=== PATIENT | female | born 1985 | race Hispanic/Latino ===

== ENCOUNTER 2018-08-20 07:03 | Inpatient (IN) | payer OTHER ==
--- OUTSIDE RECORDS SUMMARY | 2018-08-20 07:05 | XMS REPORT ---
:1985 [facility] Address [address] [place] [address] Care Team Providers Name Role Phone PABLO HEATH Unavailable Unavailable Problems This patient has no known problems. Allergies, Adverse Reactions, Alerts This patient has no known allergies or adverse reactions. Medications This patient has no known medications. Results Test Description Test Time Test Comments Text Results Atomic Results Result Comments U/S, ABDOMINAL, 2018-07-02 Referring: FINAL REPORT PATIENT ID: COMPLETE 16:16:00 Jet Bhat [id number] TECHNIQUE: for Exam:->liver Grayscale ultrasound of the mass, currently abdomen. INDICATION: 33-year-old woman with liver mass. COMPARISON: Abdomen ultrasound 03/20/2018, abdomen MRI five 2018. FINDINGS: MIDLINE VASCULATURE: The visualized inferior vena cava is patent. Portal vein is patent. The maximum visualized aortic diameter is 2.4 cm. LIVER: The liver is normal in size. Smooth liver contour. No significant change in size of the 7.9 cm mildly hyperechoic mass in the posterior right hepatic lobe with some internal vascularity. BILIARY:Gallbladder: No gallstones or sludge. No gallbladder wall thickening, pericholecystic fluid, or distention. Negative sonographic Lewis sign.Common bile duct measures 0.3 cm, within normal limits. No intrahepatic biliary ductal dilatation. PANCREAS: Visualized portions of the pancreas are unremarkable. SPLEEN: No splenomegaly. PERITONEUM: No free fluid. KIDNEYS: Normal in size bilaterally. No hydronephrosis. No sonographically evident solid mass lesion. IMPRESSION:No significant change in size of the mildly hyperechoic mass in the posterior right hepatic lobe, consistent with previously characterized focal nodular hyperplasia. Signed: Angelito Haynes MDReport Verified Date/Time: 07/02/2018 16:16:35 Reading Location: [address] Radiology Reading Room U/S, ABDOMINAL, 2018-03-20 Referring: FINAL REPORT PATIENT ID: COMPLETE 10:51:00 Jet Gayason [id number] TECHNIQUE: for Exam:->right Grayscale ultrasound of the lobe liver lesion abdomen. INDICATION: 32-year-old woman with right liver lesion. COMPARISON: Abdomen MRI 11/28/2017. FINDINGS: MIDLINE VASCULATURE: The visualized inferior vena cava is patent. Portal vein is patent. The maximum visualized aortic diameter is 1.8 cm. LIVER: The liver is normal in size and echogenicity. Smooth liver contour. Given differences in imaging modalities, no significant change in size of the 7.7 cm mildly hyperechoic lesion in the posterior right hepatic lobe without significant internal vascularity. BILIARY:Gallbladder: No gallstones or sludge. No gallbladder wall thickening, pericholecystic fluid, or distention. Negative sonographic Lewis sign.Common bile duct measures 0.5 cm, within normal limits. No intrahepatic biliary ductal dilatation. PANCREAS: Visualized portions of the pancreas are unremarkable. SPLEEN: No splenomegaly. PERITONEUM: No free fluid. KIDNEYS: Normal in size bilaterally. No hydronephrosis. No sonographically evident solid mass lesion. IMPRESSION:No significant change in size of the 7.7 cm lesion in the posterior right hepatic lobe, consistent with previously characterized focal nodular hyperplasia. Signed: Angelito Haynes MDReport Verified Date/Time: 03/20/2018 10:51:28 Reading Location: [address] Radiology Reading Room , ABDOMEN, WITH 2017-11-28 Referring: FINAL REPORT PATIENT ID: 13:32:00 Jet Bradshaw Liver [id number] protocol with EOVIST INDICATION:32-year-old female with mild abdominal pain and mass of the right hepatic lobe. COMPARISON: Outside facility MR exams November 28, 2016 TECHNIQUE: MR of the Abdomen WITHOUT and WITH intravenous contrast (Eovist). FINDINGS:In the posterior right hepatic lobe there is a circumscribed mass with a central scar. The mass homogeneously and brightly enhances on the hepatic arterial dominant phase, becomes iso-enhancing on portal venous phase, and takes up contrast on the hepatobiliary phase. The central scar is mildly hyperintense on T2-weighted imaging and enhances on the hepatic venous phase and does not take up contrast on the hepatobiliary phase. These signal characteristics and enhancement patterns are classic for fibronodular hyperplasia. The mass measures 7.1 x 5.2 x 5.9 cm and is unchanged in size, by my own measurement, compared to November 2016. It slightly distends the liver capsule. Overall the liver is normal in signal, size, and contour. Gallbladder is unremarkable. There is no biliary ductal dilatation. Pancreas spleen, adrenal glands, kidneys, and visualized bowel loops are unremarkable. Lower thorax unremarkable. No suspicious marrow signal abnormality. IMPRESSION:7-cm focal nodular hyperplasia (benign lesion) in the posterior right hepatic lobe. Signed: Mookie Osborn MDReport Verified Date/Time: 11/28/2017 13:32:45 Reading Location: [facility] Diagnostic Imaging Reading Room - [place] [id number] -CREATININE 2017-11-28 10:03:00 Test Item Value Reference Range Comments POC-CREATININE (BEAKER) (test 0.6 mg/dL 0.6-1.3 TESTED AT [facility] 2457 [id number]) [facility] [id number] POC-EGFR (AZUCENAAKER) (test 115 mL/min/1.73M2 uipy=[id number])
--- OUTSIDE RECORDS SUMMARY | 2018-08-20 07:05 | XMS REPORT | Clinical Summary ---
:1985 Author Organization [facility] Address [address] [place] [address] Care Team Providers Name Role Phone Jet Bradshaw Primary Care Provider Allergies Active Allergy Reactions Severity Noted Date Comments Zolpidem 01/01/2017 Medications Medication Sig Dispensed Refills Start Date End Date Status PNV no.95/ferrous Take by mouth 0 Active fum/folic ac ( daily. ORAL)Indications: Liver lesion, right lobe Hospital, Clinic, or Ordered Dose Route Frequency Start Date End Date Status Other Facility Administered Medication gadoxetate IV 165 mmol IArt IMG once as 11/28/2017 11/28/2017 Ended solution 165 mmol needed Active Problems Problem Noted Date 14 weeks gestation of 02/21/2018 Liver lesion, right lobe 01/01/2017 Last Assessment & Plan: Evaluation of uterine fibroids in November 2016 revealed a 7 cm right lobe liver mass which is most consistent with an FNH. Risk factors for liver masses include long history of OCPs which she stopped 2 week s ago. There is radiographic or biochemical evidence of advanced liver disease. She had a CT scan without IV contrast in 2013 which did not report this liver lesion. We will obtain CT report and imaging for review. November 2016 MRI has been reviewed in clinic and lesion is most consistent with an FNH. Updated labs today evaluating liver function along with tumor markers. She will have these done locally due to insurance. We will review all imaging at radiology conference. If mass is consistent with an FNH, she can restart OCPs and we will get a repeat MRI in 6 months to follow. Encounters Date Type Specialty Care Team Description 08/19/2018 Telephone Transplant Lidia Lara Follow-up Hepatology PHOEBE Navarrete 07/19/2018 Abstract Hepatology Ale Osullivan, TARAS 07/19/2018 Abstract Hepatology Ale Osullivan, TARAS 07/19/2018 Abstract Hepatology Ale Osullivan, TARAS 07/19/2018 Abstract Hepatology Ale Osullivan, TARAS 07/19/2018 Abstract Hepatology Ale Osullivan, TARAS 07/19/2018 Abstract Hepatology Ale Osullivan, TARAS 07/15/2018 Documentation Transplant Lidia Lara Hepatology PHOEBE Navarrete 07/02/2018 Hospital Encounter Radiology Mateo Chavez Liver lesion, right MD Amish lobe 07/02/2018 Outside Orders Mateo Chavez MD 03/20/2018 Hospital Encounter Radiology Mateo Chavez Liver lesion, right lobe ; MD Amish 14 weeks gestation of 03/20/2018 Telephone Hepatology Leana Jordan Results Sallie, FUAD 03/20/2018 Outside Orders Mateo Chavez MD 02/21/2018 Telephone Transplant Leana Jordan Results Hepatology Sallie, FUAD 02/18/2018 Abstract Hepatology Carmen France RN 01/24/2018 Office Visit Transplant Leana Jordan Liver lesion, right Hepatology FUAD Rizo lobe (Primary Dx) Mateo Chavez MD 01/17/2018 Telephone Transplant Leana Jordan Follow-up Hepatology Sallie, FUAD 11/30/2017 Telephone Transplant Leana Jordan Results Hepatology Sallie, FUAD 11/28/2017 Hospital Encounter Radiology Mateo Chavez Liver lesion, right MD Amish lobe 09/07/2017 Documentation Hepatology Leana Jordan Liver lesion, right Sallie, FUAD lobe (Primary Dx) 09/04/2017 Abstract Hepatology Carmen France, RN 09/04/2017 Documentation Hepatology Carmen France, RN after 08/19/2017 Family History Medical History Relation Name Comments Diabetes Mother Relation Name Status Comments Mother Social History Tobacco Use Types Packs/Day Years Used Date Never Smoker Smokeless Tobacco: Never Used Alcohol Use Drinks/Week oz/Week Comments Yes Social - Rum Sex Assigned at Date Recorded Not on file Job Start Date Occupation Industry Not on file Not on file Not on file Travel History Travel Start Travel End No recent travel history available. Last Filed Vital Signs Vital Sign Reading Time Taken Blood Pressure 112/79 01/24/2018 10:41 AM CDT Pulse 71 01/24/2018 10:41 AM CDT Temperature 36.9 C (98.4 F) 01/24/2018 10:41 AM CDT Respiratory Rate 18 01/24/2018 10:41 AM CDT Oxygen Saturation 98% 01/24/2018 10:41 AM CDT Inhaled Oxygen Concentration - - Weight 70 kg (154 lb 4.8 oz) 01/24/2018 10:41 AM CDT Height 154.9 cm (5' 1") 01/24/2018 10:41 AM CDT Body Mass Index 29.15 01/24/2018 10:41 AM CDT Plan of Treatment Health Maintenance Due Date Last Done Comments INFLUENZA VACCINE 04/29/2018 Procedures Procedure Name Priority Date/Time Associated Diagnosis Comments US ABDOMEN COMPLETE Routine 07/02/2018 1:45 PM Liver lesion, right Results for this BUSINESS ANALYSIS CONSULTANT lobe procedure are in the results section. US ABDOMEN COMPLETE Routine 03/20/2018 9:36 AM Liver lesion, right Results for this CDT lobe procedure are in 14 weeks gestation the results of section. MR ABDOMEN Routine 11/28/2017 11:00 AM Liver lesion, right Results for this WITH/WITHOUT IV CDT lobe procedure are in CONTRAST the results section. POCT-CREATININE Routine 11/28/2017 9:59 AM Results for this CDT procedure are in the results section. after 08/19/2017 Results US abdomen complete (07/02/2018 1:45 PM BUSINESS ANALYSIS CONSULTANT)Only the most recent of2 resultswithin the time period is included. Narrative Performed At FINAL REPORT [email or web address] TECHNIQUE: Grayscale ultrasound of the abdomen. INDICATION: 33-year-old woman with liver mass. COMPARISON: Abdomen ultrasound 03/20/2018, abdomen MRI five 2017. FINDINGS: MIDLINE VASCULATURE: The visualized inferior vena cava is patent. Portal vein is patent. The maximum visualized aortic diameter is 2.4 cm. LIVER: The liver is normal in size. Smooth liver contour. No significant change in size of the 7.9 cm mildly hyperechoic mass in the posterior right hepatic lobe with some internal vascularity. BILIARY: Gallbladder: No gallstones or sludge. No gallbladder wall thickening, pericholecystic fluid, or distention. Negative sonographic Lewis sign. Common bile duct measures 0.3 cm, within normal limits. No intrahepatic biliary ductal dilatation. PANCREAS: Visualized portions of the pancreas are unremarkable. SPLEEN: No splenomegaly. PERITONEUM: No free fluid. KIDNEYS: Normal in size bilaterally. No hydronephrosis. No sonographically evident solid mass lesion. IMPRESSION: No significant change in size of the mildly hyperechoic mass in the posterior right hepatic lobe, consistent with previously characterized focal nodular hyperplasia. Signed: Angelito Haynes MD Report Verified Date/Time:07/02/2018 16:16:35 Reading Location: [address] Radiology Reading Room Procedure Note Interface, External Ris In - 07/02/2018 4:18 PM BUSINESS ANALYSIS CONSULTANT FINAL REPORT TECHNIQUE: Grayscale ultrasound of the abdomen. INDICATION: 33-year-old woman with liver mass. COMPARISON: Abdomen ultrasound 03/20/2018, abdomen MRI five 2017. FINDINGS: MIDLINE VASCULATURE: The visualized inferior vena cava is patent. Portal vein is patent. The maximum visualized aortic diameter is 2.4 cm. LIVER: The liver is normal in size. Smooth liver contour. No significant change in size of the 7.9 cm mildly hyperechoic mass in the posterior right hepatic lobe with some internal vascularity. BILIARY: Gallbladder: No gallstones or sludge. No gallbladder wall thickening, pericholecystic fluid, or distention. Negative sonographic Lewis sign. Common bile duct measures 0.3 cm, within normal limits. No intrahepatic biliary ductal dilatation. PANCREAS: Visualized portions of the pancreas are unremarkable. SPLEEN: No splenomegaly. PERITONEUM: No free fluid. KIDNEYS: Normal in size bilaterally. No hydronephrosis. No sonographically evident solid mass lesion. IMPRESSION: No significant change in size of the mildly hyperechoic mass in the posterior right hepatic lobe, consistent with previously characterized focal nodular hyperplasia. Signed: Angelito Haynes MD Report Verified Date/Time: 07/02/2018 16:16:35 Reading Location: [address] Radiology Reading Room Performing Organization Address City/State/Zipcode Phone Number RIS MR abdomen with/without IV contrast (11/28/2017 11:00 AM CDT) Narrative Performed At FINAL REPORT [facility] INDICATION: 32-year-old female with mild abdominal pain and mass of the right hepatic lobe. COMPARISON: Outside facility MR exams November 28, 2016 TECHNIQUE: MR of the Abdomen WITHOUT and WITH intravenous contrast (Eovist). FINDINGS: In the posterior right hepatic lobe there is [...] thorax unremarkable. No suspicious marrow signal abnormality. IMPRESSION: 7-cm focal nodular hyperplasia (benign lesion) in the posterior right hepatic lobe. Signed: Mookie Osborn MD Report Verified Date/Time:11/28/2017 13:32:45 Reading Location: [facility] Diagnostic Imaging Reading Room - [place] [address] Procedure Note Interface, External Ris In - 11/28/2017 1:34 PM CDT FINAL REPORT INDICATION: 32-year-old female with mild abdominal pain and mass of the right hepatic lobe. COMPARISON: Outside facility MR exams November 28, 2016 TECHNIQUE: MR of the Abdomen WITHOUT and WITH intravenous contrast (Eovist). FINDINGS: In the posterior right hepatic lobe there is [...] thorax unremarkable. No suspicious marrow signal abnormality. IMPRESSION: 7-cm focal nodular hyperplasia (benign lesion) in the posterior right hepatic lobe. Signed: Mookie Osborn MD Report Verified Date/Time: 11/28/2017 13:32:45 Reading Location: [facility] Diagnostic Imaging Reading Room - [place] [id number] Performing Organization Address City/State/Zipcode Phone Number [email or web address] POC-Creatinine (11/28/2017 9:59 AM CDT) POC-Creatinine 0.6Comment: TESTED AT 0.6 - 1.3 mg/dL [facility] [address] [facility] [address] POC-EGFR 115 mL/min/1.73M2 [facility] Specimen Blood Narrative Performed At Performing Organization Address City/State/Zipcode Phone Number [facility] [address] [place] [address] [phone] CENTER after 08/19/2017 Insurance Payer Benefit Plan / Group Subscriber ID Type Phone Address [facility] xxxxxxxxxxx PPO (Home) [place] [address]
--- OUTSIDE RECORDS SUMMARY | 2018-08-20 07:05 | XMS REPORT | Clinical Summary ---
:1985 [facility] Address [address] [place] [id number] Care Team Providers Name Role Phone Jet Bradshaw MD Primary Care Provider Allergies Active Allergy Reactions Severity Noted Date Comments Zolpidem High 12/28/2016 Medications No known medications Active Problems Problem Noted Date Liver mass 12/28/2016 Oral contraceptive use 12/28/2016 Family History Medical History Relation Name Comments Diabetes Maternal Grandmother Diabetes Mother Rheum arthritis Mother Relation Name Status Comments Maternal Grandmother Mother Social History Tobacco Use Types Packs/Day Years Used Date Never Smoker Smokeless Tobacco: Never Used Alcohol Use Drinks/Week oz/Week Comments Yes Sex Assigned at Date Recorded Not on file Job Start Date Occupation Industry Not on file Not on file Not on file Travel History Travel Start Travel End No recent travel history available. Last Filed Vital Signs Not on file Plan of Treatment Health Maintenance Due Date Last Done Comments CERVICAL CANCER SCREENING 2005 INFLUENZA VACCINE 02/27/2018 Results Not on fileafter 08/19/2017 Insurance Payer Benefit Plan / Group Subscriber ID Type Phone Address [employer]CIAL xxxxxxxxxxx Commercial (Home) [place] [address] Advance Directives Patient has advance care planning documents on file. For more information, please contact:[facility] [place] [address]
[2018-08-20] MEDS ORDERED: BUTORPHANOL 1 MG/ML INJ IV PRN (08:03)
[2018-08-20] MEDS ORDERED: Ringers Lactate 1,000 ML IV PRN (08:03)
[2018-08-20 08:14] VITALS: BMI 35.3
[2018-08-20 08:27] LABS: RPR Titer ND
[2018-08-20] MEDS ORDERED: METHYLERGONOVINE 0.2MG/ML AMP IM ONE (08:44)
[2018-08-20] MEDS ORDERED: CARBOPROST TROME 250 MCG/ML IM ONE (08:44)
[2018-08-20] MEDS ORDERED: OXYTOCIN/LR 20 UNIT/1,000 ML BAG IV SCH (09:00)
[2018-08-20] MEDS ORDERED: Ringers Lactate 1,000 ML IV SCH (09:00)
[2018-08-20 09:06] LABS: Absolute Lymphocytes (CBC) 2.2 K/uL (0.7-4.9); Absolute Monocytes 0.7 K/uL (0.1-1.3); Absolute Neutrophil 7.7 K/uL (1.8-8.0); Basophils % 0.3 % (0-1.3); Eosinophils % 0.8 % (0-4.4); Lymphocytes % 20.2 % (15.3-44.8); MPV 10.1 fL (7.6-11.3); Monocytes % 6.6 % (3.3-12.3); RBC Red Blood Cell Count 4.49 M/uL (3.86-4.86)
[2018-08-20] MEDS ORDERED: FENTANYL CITR 100 MCG/2 ML ONE (09:24)
[2018-08-20] MEDS ORDERED: ROPIVACAINE HCL 100 ML IV ONE (09:25)
[2018-08-20] MEDS ORDERED: ROPIVACAINE HCL 20 ML ONE (09:25)
[2018-08-20] MEDS ORDERED: FAMOTIDINE 20 MG/2 ML VIAL IV ONE ×2 (10:04→10:45)
--- NOTE | 2018-08-20 10:13 | P.OBGYNHP ---
Certification for Inpatient Patient admitted to: Inpatient With expected LOS: >2 Midnights Patient will require the following post-hospital care: None Practitioner: I am a practitioner with admitting privileges, knowledge of patient current condition, hospital course, and medical plan of care. Services: Services provided to patient in accordance with Admission requirements found in Title 42 Section 412.3 of the Code of Federal Regulations Patient History Date of Service: 08/20/18 Reason for admission: LABOR History of Present Illness: Patient is a 33-year-old 1 para 0 who presents to Labor and delivery at 39 weeks gestation in labor. Patient had spontaneous rupture of membranes at 4: 00 a.m. this morning and then presented to labor and delivery at 7:00 a.m.. She states she has been having contractions off and on throughout the night. She was seen in the office yesterday was found to be 2-3 cm dilated 60% effaced and and-2 station. Today she presents 4 cm dilated 90% effaced,-1 station nitrazine positive with clear fluid noted in the vaginal vault. The patient has obtained care with mt beginning at 9 weeks gestation. Her care has been complicated by fibroid uterus. She also has a mass in her liver that is being followed by her GI physician. She has seen [facility] for ultrasounds. [facility] did not recommend any new interventions and stated she could go to term. She had noninvasive testing done which revealed low risk male infant. Her last ultrasound was done here presents for on July 25. was in cephalic presentation. Amniotic fluid index was 8.6 cm. Estimated weight was 5 lb 15 oz. He 4.4 cm fibroid was noted within the anterior lower uterine segment. Placenta is noted to be anterior. 1 hr glucose screen was normal. She is rubella immune. Varicella immune. Rh positive. She received her Tdap vaccine in the office on July 25. She has been compliant with all visits. Her has been supportive throughout the . Allergies No Known Allergies Allergy (Unverified 08/20/18 08:01) - Past Medical/Surgical History Has patient received pneumonia vaccine in the past: No Diabetic: No -: Hx. of fibroids -: Liver mass -: Removal of a Lypoma on back - Family History Family History: Reviewed- Non-Contributory - Social History Smoking Status: Never smoker Alcohol use: No CD- Drugs: No Caffeine use: Yes Place of Residence: Home Review of Systems 10-point ROS is otherwise unremarkable Physical Examination - Vital Signs Temperature: 98.6 F Blood Pressure: 136/86 Pulse: 79 Respirations: 20 - General General: Alert, Oriented x3, Moderate distress HEENT: Atraumatic Neck: Supple Respiratory: Normal air movement Cardiovascular: No edema, Normal pulses Breasts: Normal configuration, Normal contours, Symmetrical Gastrointestinal: Other (Gravid) Musculoskeletal: No clubbing, No swelling Integumentary: No rashes, No breakdown Neurological: Normal gait, Normal speech - Female Pelvic External genitalia: Normal, No lesions, No masses Vagina: Normal, [place], Moist Cervix: Dilation (6 cm), Effacement (90% effaced), station (-1 station vertex presentation) Uterus: Gravid - Obstetrics heart rate tracing: Category 2 Contractions: Frequency (Every 3-5 min) Amniotic membrane: SROM (4:00 a.m.) Laboratory Data (last 24 hrs) 08/20/18 07:50: WBC 10.6, Hgb 12.1, Hct 36.0, Plt Count 246 Assessment and Plan - Plan Patient is a 33-year-old G 1 P 0 at 39 weeks gestation who presents in active labor. Patient has had spontaneous rupture of membranes. She is GBS negative. Her care is complicated by fibroid uterus. She is has received her epidural. Her pain is well managed. Pitocin will be started as needed for labor augmentation. Continuous maternal monitoring be performed. Anticipate vaginal . Discharge Plan: Home Plan to discharge in: 48 Hours - Advance Directives Does patient have a Living Will: No Does patient have a Durable POA for Healthcare: No
[2018-08-20] MEDS ORDERED: LIDOCAINE 2% INJ, 20 mL 20 ML ONE (13:37)
[2018-08-20] MEDS ORDERED: IBUPROFEN 200 MG TAB PO PRN (13:56)
[2018-08-20] MEDS ORDERED: ONDANSETRON 4 MG (ODT) TAB PO PRN (13:56)
[2018-08-20] MEDS ORDERED: Oxycodone HCl/Acetaminophen 1 TAB TAB PO PRN (13:56)
[2018-08-20] MEDS ORDERED: METHYLERGONOVINE 0.2 MG TAB PO PRN (13:56)
[2018-08-20] MEDS ORDERED: ACETAMINOPHEN 500 MG TAB PO PRN (13:56)
[2018-08-20] MEDS ORDERED: BISACODYL 10 MG RECTAL SUPP RECT PRN (13:56)
[2018-08-20] MEDS ORDERED: DOCUSATE NA/SENNA CONC 1 TAB PO PRN (13:56)
--- NOTE | 2018-08-20 14:00 | P.OP ---
Date of Service: 08/20/18 Findings and Operative Technique Patient delivered a viable male in cephalic presentation on 08/20/18 at 13:33 via vacuum assisted vaginal delivery due to bradycardia over a midline episiotomy. Once was delivered nose and mouth were suctioned with a suction bulb and cord was clamped and cut and was handed off to nursery nurse for evaulation. Attention was then turned to the placenta. Cord blood was obtained. Placenta was delivered with gentle traction and was noted to be intact. Attention was then turned to the episiotomy which was noted to be a second degree laceration and was repaired with a 2.0 vicryl in a usual fashion. Fundus was palpated and found to be firm. EBL was 300 cc. APGARS were assigned 9/9. Weight was found to be 6 lbs 12 ounces. There was a true knot in the umbilical cord. First stage of labor was 7 hours and 45 minutes. Second stage of labor was 1 hour and 12 minutes.
[2018-08-21 04:56] LABS: Absolute Lymphocytes (CBC) 2.3 K/uL (0.7-4.9); Absolute Neutrophil 11.4 K/uL (1.8-8.0); Basophils % 0.2 % (0-1.3); Eosinophils % 0.7 % (0-4.4); Hematocrit 31.8 % (36.0-45.0); Lymphocytes % 15.7 % (15.3-44.8); MPV 9.6 fL (7.6-11.3); RBC Red Blood Cell Count 3.93 M/uL (3.86-4.86)
[2018-08-21] MEDS ORDERED: Ringers Lactate 1,000 ML IV ONE (06:30)
[2018-08-21 17:53] VITALS: BP 134/82; TEMP 98.3
[2018-08-21 20:33] LABS: RPR (Rapid Plasma Reagin) NON-REACT (NON-REACT)
--- NOTE | 2018-08-21 22:06 | P.DS ---
Admission Date: 08/20/18 Discharge Date: 08/21/18 Disposition: ROUTINE DISCHARGE Discharge Condition: GOOD Reason for Admission: LABOR Brief History of Present Illness: Patient is a 33-year-old 1 para 0 who presents to Labor and delivery at 39 weeks gestation in labor. Patient had spontaneous rupture of membranes at 4: 00 a.m. this morning and then presented to labor and delivery at 7:00 a.m.. She states she has been having contractions off and on throughout the night. She was seen in the office yesterday was found to be 2-3 cm dilated 60% effaced and and-2 station. Today she presents 4 cm dilated 90% effaced,-1 station nitrazine positive with clear fluid noted in the vaginal vault. The patient has obtained care with al beginning at 9 weeks gestation. Her care has been complicated by fibroid uterus. She also has a mass in her liver that is being followed by her GI physician. She has [facility] for [facility]. [facility] did not recommend any new interventions and stated she could go to term. She had noninvasive testing done which revealed low risk male . Her last ultrasound was done here presents for on July 25. was in cephalic presentation. Amniotic fluid index was 8.6 cm. Estimated weight was 5 lb 15 oz. He 4.4 cm fibroid was noted within the anterior lower uterine segment. Placenta is noted to be anterior. 1 hr glucose screen was normal. She is rubella immune. Varicella immune. Rh positive. She received her Tdap vaccine in the office on July 25. She has been compliant with all visits. Her has been supportive throughout the . Hospital Course: Patient did well following delivery of the . She has been bonding well with the baby. She has been breast feeding. She is voiding. She is tolerating a regular diet. She is ambulating well. Her pain is well managed. Vital Signs/Physical Exam: Temp Pulse Resp BP Pulse Ox 98.3 F 78 18 134/82 99 08/21/18 17:00 08/21/18 17:00 08/21/18 17:08/21/18 17:00 08/20/18 08:01 General: Alert, In no apparent distress HEENT: Atraumatic Neck: Supple Respiratory: Normal air movement Cardiovascular: No edema, Normal pulses Gastrointestinal: Soft and benign (fundus firm palpable beneath umbilicus ) Musculoskeletal: No clubbing, No swelling Laboratory Data at Discharge: WBC 14.9 K/uL (4.3-10.9) H D 08/21/18 04:41 Hgb 10.5 g/dL (12.0-15.0) L 08/21/18 04:41 Hct 31.8 % (36.0-45.0) L 08/21/18 04:41 Plt Count 238 K/uL (152-406) 08/21/18 04:41 Home Medications: Codeine/APAP [Tylenol W/Codeine #3 tab] 1 tab PO Q6HP PRN #24 tab 08/21/18 Ibuprofen [Ibu] 600 mg PO TIDP PRN #90 tablet 08/21/18 New Medications: Codeine/APAP [Tylenol W/Codeine #3 tab] 1 tab PO Q6HP PRN #24 tab PRN Reason: Pain Ibuprofen [Ibu] 600 mg PO TIDP PRN #90 tablet PRN Reason: Pain Diet: Regular Activity: No lifting more than 10 lbs
[2018-08-23 05:21] LABS: HBsAG Nonreactive (Nonreactive)
== END 2018-08-21 19:00 | disposition home or self-care (01) | DRG 998 ==
LOC: L&D 07:03 → 2ND-WC 07:51
PROVIDERS: ADMIT Student in an Organized Health Care Education/Training Program; ATTEND Student in an Organized Health Care Education/Training Program
PROC: 10D07Z6 Extraction of Products of Conception, Vacuum, Via Natural or Artificial Opening (ICD-10-PCS; principal; 2018-08-20)
PROC: 0W8NXZZ Division of Female Perineum, External Approach (ICD-10-PCS; 2018-08-20)
DX: O76 Abnormality in fetal heart rate and rhythm complicating labor and delivery (principal); O34.13 Maternal care for benign tumor of corpus uteri, third trimester; D25.9 Leiomyoma of uterus, unspecified; O69.2XX0 Labor and delivery complicated by other cord entanglement, with compression, not applicable or unspecified; O66.5 Attempted application of vacuum extractor and forceps; Z3A.39 39 weeks gestation of pregnancy; O75.89 Other specified complications of labor and delivery; R16.0 Hepatomegaly, not elsewhere classified
CPT/HCPCS: 36415; 85025; 86592; 86850; 86900; 86901; 87340; J0595; J2210; J2590; J2795; J3010

== ENCOUNTER 2023-04-19 05:28 | Emergency (ER) | payer BC ==
--- OUTSIDE RECORDS SUMMARY | 2023-04-19 05:32 | XMS REPORT | Continuity of Care Document ---
:[address] [facility] [place], [place] t Address [address] [place] [address] Care Team Providers Name Role Phone JET BRADSHAW Primary Care Physician UnavailDOMINGO Garcia Attending Clinician Unavailable PABLO HEATH Attending Clinician Unavailable Payers Payer Name Policy Type Policy Number Effective Date Expiration Date S alvarado [employer]BS PPO POS EPO [id number] 2020 CHOICE 00:00:00 Problems Condition Condition Condition Status Onset Resolution Last Treating Co mments Source Name Details Category Date Date Treatment Clinician Date 14 weeks 14 weeks Disease [facility]26 [facility]: Medical [facility] Liver Liver Disease Active Last [facility] lesion, lesion, 6-05 [facility] right lobe right lobe 00:00: t & Plan: Medical 00 [facility] g of this note might be different from the original. 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 Risk factors for liver masses include long history of OCPs which she stopped 2 weeks ago. There is radiograp hic or biochemic al evidence of advanced liver disease. She had a CT scan without IV contrast in 2013 which did not report this liver lesion. We will obtain CT report and imaging for review. November 2016 MRI has been reviewed in clinic and lesion is most consisten t with an FNH. Updated labs today evaluatin g liver function along with tumor markers. She will have these done locally due to insurance . [facility] If mass is consisten t with an FNH, she can restart OCPs and we will get a repeat MRI in 6 months to follow. Allergies, Adverse Reactions, Alerts Allergy Allergy Status Severity Reaction(s) Onset Inactive Treating Comm ents Source Name Type Date Date Clinician Zolpidearam Propensi Active [facility] 01-01 [facility] adverse 00:00: Medical reaction 00 Center s ZOLPIDEM Allergy Active [facility] 01-01 00:00: 00 Family History Family Member Diagnosis Comments Start Date Stop Date Source Natural mother Diabetes [facility] Social History Social Habit Start Date Stop Date Quantity Comments Source Alcohol intake 2021-10-06 2021-10-06 [facility] (finding) Tobacco use and 2017-01-01 2017-01-[address] [facility] exposure 00:00:00 00:00:00 non-user [facility] Center Alcohol Comment 2017-01-01 2017-01-01 Social - Rum [facility] 00:00:00 00:00:00 [facility] Center Sex Ass[birth year] At [birth year] [facility] Hermila kes 00:00:00 00:00:00 Medical Center Smoking Status Start Date Stop Date Source Never smoked tobacco [facility] Medications Ordered Filled Start Stop Current Ordering Indication Dosage Frequency Signature Comments Components Source Medication Medication Date Date Medication? Clinician (SIG) Name Name PNV Yes Liver QD Take by [facility]jian 3-10 lesion, mouth Luke s us 14:05: right lobe daily. Medic al fum/folic 41 Center ac ( ORAL) Procedures This patient has no known procedures. Plan of Care Planned Activity Planned Date Details Comments Source Future Scheduled 2030-04-08 DTAP/TDAP/TD VACCINES ([address] [facility] Test 00:00:00 - Td or Tdap) [code = Medica Center DTAP/TDAP/TD VACCINES (2 - Td or Tdap)] Future Scheduled 2023-03-30 Influenza Vaccine (#1) [facility] 00:00:00 [code = Influenza Vaccine [facility] (#1)] Future Scheduled 2022-10-[address] [facility] Test 00:00:00 Counseling and Screening Med ical Center (12+) [code = Tobacco Cessation Counseling and Screening (12+)] Future Scheduled 2022-07-[address] [facility] Test 00:00:00 (12+) [code = DEPRESSION Med ical Center SCREENING (12+)] Future Scheduled 2005 Screening for malignant [facility] Test 00:00:00 neoplasm of cervix Medical C enter (procedure) [code = 474451417] Future Scheduled 2002 HEPATITIS C SCREENING [facility] Test 00:00:00 [code = HEPATITIS C Medical Center SCREENING] Future Scheduled 1999 Human immunodeficiency [facility] Test 00:00:00 virus screening Medical Cent er (procedure) [code = 186700865] Future Scheduled 1984 COVID-19 VACCINE (#1) [facility] Test 00:00:00 [code = COVID-19 VACCINE Med ical Center (#1)] Encounters Start End Encounter Admission Attending Care Care Encounter Source Date/Time Date/Time Type Type Clinicians Facility Department ID 2021-10-06 2021-10-06 Outpatient LYN QUAN [facility] [id number] [facility] 13:57:20 13:57:20 DOMINGO Results Test Description Test Time Test Comments Results Result Comments Source HEPATIC FUNCTION PANEL 2021-10-06 15:34:00 Test Item Value Reference Range Interpretation Comme nts TOTAL PROTEIN (BEAKER) (test code = 770) 7.6 gm/dL 6.0-8.3 ALBUMIN (BEAKER) (test code = 1145) 4.4 g/dL 3.5-5.0 BILIRUBIN TOTAL (BEAKER) (test code = 377) 0.5 mg/dL 0.2-1.2 BILIRUBIN DIRECT (BEAKER) (test code = 706) 0.2 mg/dL 0.1-0.5 ALKALINE PHOSPHATASE (BEAKER) (test code = 346) 73 U/L 40-150 AST (SGOT) (BEAKER) (test code = 353) 17 U/L 5-34 ALT (SGPT) (BEAKER) (test code = 347) 19 U/L 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 Jet Bhat for Exam:->liver mass, currently FINAL REPORT TECHNIQUE: Grayscale ultrasound of the abdomen. INDICATION: 33-year-old woman with liver mass. COMPARISON: Abdomen ultrasound 03/20/2018, abdomen MRI 2017. FINDINGS: MIDLINE VASCULATURE: The visualized inferior vena cava is patent. Portal vein is patent. The maximum visualized aortic diameter is 2.4 cm. LIVER: The liver is normal in size. Smooth liver contour. Nosignificant change in size of the 7.9 cm mildly hyperechoic mass in the posterior right hepatic lobewith some internal vascularity. BILIARY:Gallbladder: No gallstones or [...] MDReport Verified Date/Time: 07/02/2018 16:16:35 Reading Location: [address] Radiology Reading Room U/S, ABDOMINAL, [id number] 10:51:00Referring: Dr. Jet Bhat for Exam:->right lobe liver lesion FINAL REPORT TECHNIQUE: Grayscale ultrasound of the abdomen. INDICATION: 32-year-old woman with right liver lesion. COMPARISON: Abdomen MRI 11/28/2017. FINDINGS: MIDLINE VASCULATURE:The visualized inferior vena cava is patent. Portal [...] Normal in size bilaterally. No hydronephrosis. No son ographically evident solid mass lesion. IMPRESSION:No significant change in size of the 7.7 cm lesion in the posterior right hepatic lobe, consistent with previously characterized focal nodular hyperplasia. Signed: Angelito Haynes MDReport Verified Date/Time: 03/20/2018 10:51:28 Reading Location: [address] Radiology Reading Room MR, ABDOMEN, [id number] 13:32:00Referring: Dr. Jet Bradshaw Liver protocol with EOVISTFINAL REPORT INDICATION:32-year-old female with mild abdominal pain and mass ofthe right hepatic lobe. COMPARISON: Outside facility MR exams November 28, 2016 TECHNIQUE: MR of the Abdomen WITHOUT and WITH intravenous contrast (Eovist). FINDINGS:In the posterior right hepatic lobe thereis a circumscribed mass with a central scar. The mass homogeneously and brightly enhances on the hepatic arterial dominant phase, becomes iso-enhancing on portal venous phase, and takes up contrast on t he hepatobiliary phase. The central scar is mildly [...] MDReport Verified Date/Time: 11/28/2017 13:32:45 Reading Location: [facility] Diagnostic Imaging Reading Room - [place] [id number] 10:03:00 Test Item Value Reference Range Interpretation Comments POC-CREATININE 0.6 mg/dL 0.6-1.3 TESTED AT [facility] ([facility]) (test [address] [facility] code = 1859) [facility] 7703 0 POC-EGFR 115 mL/min/1.73M2 ([facility]) (test code = 1860)
[2023-04-19] MEDS ORDERED: DIAZEPAM 5 MG TABLET ONE (06:20)
[2023-04-19] MEDS ORDERED: ONDANSETRON 4 MG/2 ML VIAL ONE (06:21)
[2023-04-19] MEDS ORDERED: NA CHLORIDE 0.9% 1,000 ML ONE (06:21)
[2023-04-19] MEDS ORDERED: MORPHINE 4 MG/ML SYR ONE (06:21)
[2023-04-19] MEDS ORDERED: dexAMETHasone 10 MG/ML VIAL ONE (06:21)
[2023-04-19] MEDS ORDERED: KETOROLAC 30 MG/ML INJ ONE (06:21)
[2023-04-19 06:32] LABS: Absolute Lymphocytes (CBC) 1.4 K/uL (0.7-4.9); Hematocrit 40.6 % (36.0-45.0); Lymphocytes % 11.2 % (15.3-44.8); MCV 78.3 fL (80-100); MPV 8.8 fL (7.6-11.3); Platelets 318 thou/uL (152-406); RBC Red Blood Cell Count 5.18 M/uL (3.86-4.86)
[2023-04-19 06:50] LABS: Albumin 3.9 g/dL (3.4-5.0); Bilirubin Total 0.4 mg/dL (0.2-1.0); Potassium 3.8 mEq/L (3.5-5.1); Protein, Total 7.7 g/dL (6.4-8.2); Uric Acid 3.3 mg/dL (2.6-6.0)
--- NOTE | 2023-04-19 08:22 | RAD REPORT ---
EXAM DESCRIPTION: CT - Spine Lumbar Wo Con - 04/19/2023 7:13 am CLINICAL HISTORY: Radiculopathy. PAIN COMPARISON: <Comparisons> TECHNIQUE: Axial noncontrast CT imaging of the lumbar spine was performed with coronal and sagittal re-formatted images. All CT scans are performed using dose optimization technique as appropriate and may include automated exposure control or mA/KV adjustment according to patient size. FINDINGS: No acute lumbar spine fracture seen. No aggressive marrow pattern or malalignment. Paraspinal tissues are normal in thickness. No paraspinal abscess or hematoma seen. Mild lower lumbar disc bulges are suspected. Disc disease assessment is inherently limited by CT. Wit hin these limitations, no high-grade canal stenosis suspected. IMPRESSION: No acute lumbar spine finding is observed. Mild lower lumbar disc bulging. Consider MRI follow-up for assessment of disc disease if clinically desired.
--- NOTE | 2023-04-19 08:30 | RAD REPORT ---
EXAM DESCRIPTION: US - Extremity Venous Uni Ltd - 04/19/2023 7:10 am CLINICAL HISTORY: PAIN Leg swelling and edema. COMPARISON: <Comparisons> FINDINGS: Right lower extremity venous system was interrogated with Doppler technique. Normal flow, compressibility and augmentation was noted. There is no DVT present. IMPRESSION: No evidence of right lower extremity deep venous thrombosis.
--- NOTE | 2023-04-19 08:36 | RAD REPORT ---
EXAM DESCRIPTION: RAD - Hip Right 2 View - 04/19/2023 7:05 am CLINICAL HISTORY: PAIN COMPARISON: <Comparisons> FINDINGS: No fracture, dislocation or AVN observed.
--- NOTE | 2023-04-19 08:37 | ER ---
Nurse's Notes [facility] Name: Annabella Desouza Age: 37 yrs Sex: Female : 1985 Arrival Date: 04/19/2023 Time: 05:28 Bed 6 Private MD: Jet Bradshaw V Diagnosis: Pain in right leg;Sciatica, right side;Pain in right ankle and joints of right foot Presentation: 04/19 05:57 Chief complaint: Patient states: My right ankle started hurting randomly last night. I kd3 did not injure it at all. I do not know what is causing the sudden pain. I also feel some pain in my right hip when i move it around. The main pain is in the ankle. Coronavirus screen: Vaccine status: Patient reports being unvaccinated. Ebola Screen: No symptoms or risks identified at this time. Initial Sepsis Screen: Does the patient meet any 2 criteria? No. Patient's initial sepsis screen is negative. Does the patient have a suspected source of infection? No. Patient's initial sepsis screen is negative. Risk Assessment: Do you want to hurt yourself or someone else? Patient reports no desire to harm self or others. Onset of symptoms was April 19, 2023. 05:57 Method Of Arrival: Wheelchair kd3 05:57 Acuity: FINESSE 4 kd3 Triage Assessment: 06:00 General: Appears uncomfortable, Behavior is calm, cooperative. Pain: Complains of pain kd3 in right ankle. Neuro: Level of Consciousness is awake, alert, obeys commands, Oriented to person, place, time, situation. Respiratory: Airway is patent Trachea midline Respiratory effort is even, unlabored, Respiratory pattern is regular, symmetrical. 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 - Social history:: Smoking status: Patient denies any tobacco usage or history of. Screenin:01 [facility] ED Fall Risk Assessment (Adult) History of falling in the last 3 months, kd3 including since admission No falls in past 3 months (0 pts) Confusion or Disorientation No (0 pts) Intoxicated or Sedated No (0 pts) Impaired Gait No (0 pts) Mobility Assist Device Used No (0 pt) Altered Elimination No (0 pt) Score/Fall Risk Level 0 - 2 = Low Risk Maintained a safe environment. Abuse screen: Denies threats or abuse. Denies injuries from another. Nutritional screening: No deficits noted. Tuberculosis screening: No symptoms or risk factors identified. Assessment: 06:50 General: Appears uncomfortable, Behavior is calm, cooperative. Pain: Complains of pain kd3 in right hip and buttocks and right ankle. Neuro: Level of Consciousness is awake, alert, obeys commands, Oriented to person, place, time, situation. Cardiovascular: Patient's skin is warm and dry. Respiratory: Airway is patent Trachea midline Respiratory effort is even, unlabored, Respiratory pattern is regular, symmetrical. 08:00 General: Appears in no apparent distress. comfortable, Behavior is calm, cooperative. rs5 Pain: Complains of pain in right hip and right ankle Pain does not radiate. Pain currently is 5 out of 10 on a pain scale. Quality of pain is described as aching, Pain began 1 day ago. Is continuous. Neuro: Level of Consciousness is awake, alert, obeys commands, Oriented to person, place, time, situation. Cardiovascular: Heart tones S1 S2 present Rhythm is regular. Respiratory: Airway is patent Respiratory effort is even, unlabored, Respiratory pattern is regular, symmetrical, Breath sounds are clear bilaterally. GI: Abdomen is round non-distended, Bowel sounds present X 4 quads. Abd is soft and non tender X 4 quads. : No signs and/or symptoms were reported regarding the genitourinary system. EENT: No signs and/or symptoms were reported regarding the EENT system. Derm: Skin is pink, warm \T\ dry. Musculoskeletal: Range of motion: intact in all extremities. Vital Signs: 05:57 BP 119 / 85; Pulse 81; Resp 19; Temp 97.9(O); Pulse Ox 100% on R/A; Weight 68.04 kg; kd3 Height 5 ft. 1 in. ; 06:51 BP 100 / 64; Pulse 84; Resp 19; Pulse Ox 100% on R/A; kd3 05:57 Body Mass Index 28.34 (68.04 kg, 154.94 cm) kd3 ED Course: 05:32 Patient arrived in ED. es 05:33 Jet Bradshaw MD is Private Physician. es 05:43 Burke Snowden MD is Attending Physician. paxton 05:51 Chichi Solis, YUNI is Primary Nurse. kd3 05:59 Triage completed. kd3 06:00 Arm band placed on right wrist. kd3 06:01 Patient has correct armband on for positive identification. Provided Education on: . kd3 06:25 Test, Serum Sent. kd3 06:25 CBC with Diff Sent. kd3 06:25 Comprehensive Metabolic Panel Sent. kd3 06:25 Uric Acid Sent. kd3 06:52 CT Lumbar Spine Wo Con In Process Unspecified. EDMS 07:07 Ankle Right 3 View XRAY In Process Unspecified. EDMS 07:07 Hip Right 2 View XRAY In Process Unspecified. EDMS 07:11 US Extremity Venous Unilateral Ltd In Process Unspecified. EDMS 08:37 Jet Bradshaw MD is Referral Physician. cp3 Administered Medications: 05:58 CANCELLED (Duplicate Order): norco10 mg-325 mg 1 tabs PO once paxton 06:00 CANCELLED (Duplicate Order): [id number] mg PO once paxton 06:24 Drug: morphine IVP or IV 4 mg IVP once over 4 mins Route: IVP; Infused Over: 4 mins; kd3 Site: right antecubital; 06:24 Drug: Ondansetron IVP 4 mg IVP once; over 2 minutes Route: IVP; Site: right antecubital;kd3 06:24 Drug: Diazepam PO 10 mg PO once Route: PO; kd3 06:24 Drug: Decadron - Dexamethasone IVP 10 mg IVP once Route: IVP; Site: right antecubital; kd3 06:25 Drug: NS 0.9% IV 1000 ml IV at 1 bolus Per protocol; 1000 mL bolus Route: IV; Rate: 1 kd3 bolus; Site: right antecubital; 06:25 Drug: Ketorolac IVP 30 mg IVP once Route: IVP; Site: right antecubital; kd3 Medication: 06:51 VIS not applicable for this client. kd3 Outcome: 08:37 Discharge ordered by . cp3 09:06 Patient left the ED. ld1 Signatures: Dispatcher [employer] EDBurke Nazraio MD MD cha Pinckney, Cwanza, MD MD cp3 Carmen Zayas Lauren, RN RN ld1 Chichi Solis, RN RN kd3 Jose Jordan, RN RN rs5
--- NOTE | 2023-04-19 08:37 | EDPHYS ---
Physician Documentation [facility] Name: Annabella Desouza Age: 37 yrs Sex: Female : 1985 Arrival Date: 04/19/2023 Time: 05:28 Bed 6 Private MD: Jet Bradshaw V ED Physician Bukre Snowden HPI: 04/19 06:02 This 37 yrs old Female presents to ER via Wheelchair with complaints of Ankle paxton pain. 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 - Social history:: Smoking status: Patient denies any tobacco usage or history of. ROS: 06:02 Constitutional: Negative for fever, chills, and weight loss, Eyes: Negative for injury, paxton pain, redness, and discharge, ENT: Negative for injury, pain, and discharge, Neck: Negative for injury, pain, and swelling, Cardiovascular: Negative for chest pain, palpitations, and edema, Respiratory: Negative for shortness of breath, cough, wheezing, and pleuritic chest pain, Abdomen/GI: Negative for abdominal pain, nausea, vomiting, diarrhea, and constipation, Back: Negative for injury and pain, : Negative for injury, bleeding, discharge, and swelling, Skin: Negative for injury, rash, and discoloration, Neuro: Negative for headache, weakness, numbness, tingling, and seizure, Psych: Negative for depression, anxiety, suicide ideation, homicidal ideation, and hallucinations, Allergy/Immunology: Negative for hives, rash, and allergies, Endocrine: Negative for neck swelling, polydipsia, polyuria, polyphagia, and marked weight changes, 06:02 MS/extremity: Positive for pain, tenderness, of the buttocks and right leg, Exam: 06:02 Constitutional: This is a well developed, well nourished patient who is awake, alert, paxton and in no acute distress. Head/Face: Normocephalic, atraumatic. Eyes: Pupils equal round and reactive to light, extra-ocular motions intact. Lids and lashes normal. Conjunctiva and sclera are non-icteric and not injected. Cornea within normal limits. Periorbital areas with no swelling, redness, or edema. ENT: Nares patent. No nasal discharge, no septal abnormalities noted. Tympanic membranes are normal and external auditory canals are clear. Oropharynx with no redness, swelling, or masses, exudates, or evidence of obstruction, uvula midline. Mucous membranes moist. Neck: Trachea midline, no thyromegaly or masses palpated, and no cervical lymphadenopathy. Supple, full range of motion without nuchal rigidity, or vertebral point tenderness. No Meningismus. Chest/axilla: Normal chest wall appearance and motion. Nontender with no deformity. No lesions are appreciated. Cardiovascular: Regular rate and rhythm with a normal S1 and S2. No gallops, murmurs, or rubs. Normal PMI, no JVD. No pulse deficits. Respiratory: Lungs have equal breath sounds bilaterally, clear to auscultation and percussion. No rales, rhonchi or wheezes noted. No increased work of breathing, no retractions or nasal flaring. Back: No spinal tenderness. No costovertebral tenderness. Full range of motion. Skin: Warm, dry with normal turgor. Normal color with no rashes, no lesions, and no evidence of cellulitis. MS/ Extremity: Pulses equal, no cyanosis. Neurovascular intact. Full, normal range of motion. Neuro: Awake and alert, GCS 15, oriented to person, place, time, and situation. Cranial nerves II-XII grossly intact. Motor strength 5/5 in all extremities. Sensory grossly intact. Cerebellar exam normal. Normal gait. Psych: Awake, alert, with orientation to person, place and time. Behavior, mood, and affect are within normal limits. 06:02 Abdomen/GI: Inspection: abdomen appears normal, 06:02 Musculoskeletal/extremity: Extremities: grossly normal except: noted in the right hip, lateral aspect of right knee, right ankle and anterior aspect of right ankle: decreased ROM, pain, Vital Signs: 05:57 BP 119 / 85; Pulse 81; Resp 19; Temp 97.9(O); Pulse Ox 100% on R/A; Weight 68.04 kg; kd3 Height 5 ft. 1 in. ; 06:51 BP 100 / 64; Pulse 84; Resp 19; Pulse Ox 100% on R/A; kd3 05:57 Body Mass Index 28.34 (68.04 kg, 154.94 cm) kd3 MDM: 05:43 Patient medically screened. paxton 06:04 Differential diagnosis: closed fracture, contusion. Data reviewed: vital signs, nurses [facility] notes, lab test result(s), radiologic studies, CT scan, plain films. Consideration of Admission/Observation Escalation of care including admission/observation considered. I considered the following discharge prescriptions or medication management in the emergency department Medications were administered in the Emergency Department. See MAR. Independent interpretation of the following test(s) in the Emergency Department X-Ray: My interpretation is hip, ankle. Test considered but Not performed: MRI: no mri. Historians other than the Patient: patient well informrd. Care significantly affected by the following chronic conditions:. 04/19 06:00 Order name: CBC with Diff; Complete Time: 07:06 [facility] 04/19 06:00 Order name: Comprehensive Metabolic Panel; Complete Time: 07:06 [facility] 04/19 06:00 Order name: Test, Serum; Complete Time: 07:17 [facility] 04/19 06:01 Order name: Uric Acid; Complete Time: 07:06 [facility] 04/19 05:45 Order name: Ankle Right 3 View XRAY [facility] 04/19 06:00 Order name: Hip Right 2 View XRAY; Complete Time: 08:36 [facility] 04/19 06:00 Order name: CT Lumbar Spine Wo Con; Complete Time: 08:36 [facility] 04/19 06:01 Order name: US Extremity Venous Unilateral Ltd; Complete Time: 08:36 [facility] 04/19 05:45 Order name: Ice pack; Complete Time: 06:27 [facility] Administered Medications: 05:58 CANCELLED (Duplicate Order): norco10 mg-325 mg 1 tabs PO once paxton 06:00 CANCELLED (Duplicate Order): [id number] mg PO once paxton 06:24 Drug: morphine IVP or IV 4 mg IVP once over 4 mins Route: IVP; Infused Over: 4 mins; kd3 Site: right antecubital; 06:24 Drug: Ondansetron IVP 4 mg IVP once; over 2 minutes Route: IVP; Site: right antecubital;kd3 06:24 Drug: Diazepam PO 10 mg PO once Route: PO; kd3 06:24 Drug: Decadron - Dexamethasone IVP 10 mg IVP once Route: IVP; Site: right antecubital; kd3 06:25 Drug: NS 0.9% IV 1000 ml IV at 1 bolus Per protocol; 1000 mL bolus Route: IV; Rate: 1 kd3 bolus; Site: right antecubital; 06:25 Drug: Ketorolac IVP 30 mg IVP once Route: IVP; Site: right antecubital; kd3 Disposition Summary: 04/19/23 08:37 Discharge Ordered Notes: Location: Home cp3 Problem: new cp3 Symptoms: have improved cp3 Condition: Stable cp3 Diagnosis - Pain in right leg cp3 - Sciatica, right side cp3 - Pain in right ankle and joints of right foot cp3 Followup: paxton - With: Jet Bradshaw MD - When: 2 - 3 days - Reason: Recheck today's complaints, Continuance of care, Re-evaluation by your physician Discharge Instructions: - Discharge Summary Sheet paxton - Musculoskeletal Pain paxton - Sciatica paxton - Sciatica, [id number] paxton - Radicular Pain paxton Forms: - Medication Reconciliation Form cp3 - Thank You Letter cp3 - Antibiotic Education cp3 - Prescription Opioid Use cp3 - Patient Portal Instructions cp3 - Leadership Thank You Letter cp3 Prescriptions: - acetaminophen-codeine 300-30 mg Oral tablet - take 2 tablet ORAL route every 6 hours as needed for pain; 20 tablet; Refills: paxton 0, Product Selection Permitted - dexamethasone 2 mg Oral tablet - take 1 tablet ORAL route 2 times per day; 10 tablet; Refills: 0, Product paxton Selection Permitted - Valium 5 mg Oral Tablet - take 1 tablet ORAL route every 8 hours As needed; 20 tablet; Refills: 0, paxton Product Selection Permitted - Diclofenac Sodium 75 mg Oral tablet, delayed release (enteric coated) - take 1 tablet ORAL route 2 times per day; 20 tablet; Refills: 0, Product paxton Selection Permitted Signatures: Dispatcher [employer] Burke Calderon MD MD cha Pinckney, Cwanza, MD MD cp3 Chichi Solis RN RN kd3 Corrections: (The following items were deleted from the chart) 05:58 05:45 Driscoll PO 10 mg-325 mg 1 tabs PO once ordered. paxton paxton 06:00 05:45 Ibuprofen PO 600 mg PO once ordered. [facility] 06:26 05:45 Knee Right 3 View+RAD.RAD.BRZ ordered. EDMS EDMS 06:26 05:46 Tib Fib Right+RAD.RAD.BRZ ordered. EDMS EDMS
--- NOTE | 2023-04-19 08:38 | RAD REPORT ---
EXAM DESCRIPTION: RAD - Ankle Right 3 View - 04/19/2023 7:05 am CLINICAL HISTORY: PAIN COMPARISON: <Comparisons> FINDINGS: Mild soft tissue swelling is seen laterally. No fracture or dislocation.
[2023-04-19 09:11] VITALS: TEMP 97.9; O2SAT 100
[2023-04-19 09:13] VITALS: BP 100/64
== END 2023-04-19 09:06 | disposition home or self-care (01) ==
LOC: ER 05:28
DX: M54.31 Sciatica, right side (principal); M25.571 Pain in right ankle and joints of right foot
CPT/HCPCS: 85025; 36415; 84703; 84550; 80053; 72131; 73502; 73610; 93971; 96375; 96374; 99284; J1100; J2405; J7030

== ENCOUNTER 2023-07-09 10:38 | Inpatient (IN) | payer BC ==
[2023-07-09] MEDS ORDERED: NA CHLORIDE 0.9% 1,000 ML ONE ×2 (11:14→13:50)
[2023-07-09 11:15] LABS: Hematocrit 40.3 % (36.0-45.0); Lymphocytes % 7.2 % (15.3-44.8); MCV 76.9 fL (80-100); MPV 7.7 fL (7.6-11.3); Platelets 483 thou/uL (152-406); RBC Red Blood Cell Count 5.24 M/uL (3.86-4.86)
[2023-07-09 11:21] LABS: Protime INR 1.1
[2023-07-09 11:36] LABS: Albumin 3.2 g/dL (3.4-5.0); Bilirubin Total 0.4 mg/dL (0.2-1.0); Potassium 3.4 mEq/L (3.5-5.1)
--- NOTE | 2023-07-09 12:08 | RAD REPORT ---
EXAM DESCRIPTION: RADChest Single View07/09/2023 11:37 am CLINICAL HISTORY: shortness of breath COMPARISON: Chest Pa And Lat (2 Views) dated 12/27/2016; CHEST PA AND LAT 2 VIEW dated 12/11/2014; EDY ST PA AND LAT 2 VIEW dated 08/08/2010; CHEST PA AND LAT 2 VIEW dated 07/14/2005 TECHNIQUE: Portable AP view of the chest. FINDINGS: [place] left basilar 2.9 cm opacity, could represent atelectasis or focal pneumonia. No pn eumothorax or effusion. The cardiomediastinal contours are unremarkable. IMPRESSION: Left basilar small opacity as above.
[2023-07-09] MEDS ORDERED: CEFTRIAXONE 1000 MG/VIAL ONE (12:39)
[2023-07-09] MEDS ORDERED: NA CHLORIDE 0.9% 250 ML ONE (12:39)
[2023-07-09] MEDS ORDERED: AZITHROMYCIN 500 MG INJ IVPB ONE (12:39)
[2023-07-09 12:53] LABS: Specific Gravity < 1.005 (1.005-1.030)
[2023-07-09 12:54] LABS: Specific Gravity < 1.005 (1.005-1.030); Urine Bacteria <20 /HPF (<20); Urine Bilirubin NEGATIVE (Negative); Urine Blood 3+ (OVER) (Negative); Urine Clarity Turbid (Clear); Urine Color Colorless (Yellow); Urine Glucose NEGATIVE (Negative); Urine Mucus Slight /HPF (None Seen); Urine Protein NEGATIVE (Negative); Urine RBC 21-50 /HPF (None Seen); Urine Urobilinogen Normal (Normal)
[2023-07-09] MEDS ORDERED: IBUPROFEN 400 MG TAB ONE (13:57)
[2023-07-09] MEDS ORDERED: IBUPROFEN 200 MG TAB PO ONE (13:57)
[2023-07-09] MEDS ORDERED: ACETAMINOPHEN 500 MG TAB ONE (13:57)
[2023-07-09 14:05] LABS: SARS-CoV-2 Antigen Rapid Res Negative (Negative)
--- NOTE | 2023-07-09 14:55 | RAD REPORT ---
EXAM DESCRIPTION: CT - Chest For Pe Angio - 07/09/2023 2:27 pm CLINICAL HISTORY: sob COMPARISON: None. TECHNIQUE: Dynamically enhanced axial 3 mm thick images of the chest were obtained during administra tion of 100 mL Isovue 370 IV contrast. Coronal and oblique reconstruction images were generated and r eviewed. Exam utilizes a protocol for optimal evaluation of pulmonary arterial tree. Maximum intensity projections 3D imaging was utilized All CT scans are performed using dose optimization technique as appropriate and may include automated exposure control or mA/KV adjustment according to patient size. FINDINGS: A pulmonary embolus is not seen. A thoracic aortic aneurysm is not noted. A pleural effusion is not seen. A pericardial effusion is not seen. Several nodules are present within the lungs bilaterally. The largest on the left is present within t he lower lobe 3.1 centimeters. Largest in the right is also present within the lower lobe measuring 2 .1 centimeters. IMPRESSION: Negative for a pulmonary embolism. Bilateral pulmonary nodules may represent metastases, infection or inflammation
--- NOTE | 2023-07-09 15:56 | ER ---
Nurse's Notes [facility] Name: Annabella Desouza Age: 38 yrs Sex: Female : 1985 Arrival Date: 07/09/2023 Time: 10:38 Bed 4 Private MD: Jet Bradshaw V Diagnosis: Influenza due to identified novel influenza A virus;Pneumonia, unspecified organism Presentation: 07/09 10:54 Chief complaint: Patient states: Shortness of breath and palpitations X2-3 days. Pt cm10 states that she was diagnosed with an autoimmune disease 1 week ago. Coronavirus screen: Client denies travel out of the [place] in the last 14 days. Ebola Screen: Patient denies travel to an Ebola-affected area in the 21 days before illness onset. No symptoms or risks identified at this time. Initial Sepsis Screen: Does the patient meet any 2 criteria? No. Patient's initial sepsis screen is negative. Does the patient have a suspected source of infection? No. Patient's initial sepsis screen is negative. Risk Assessment: Do you want to hurt yourself or someone else? Patient reports no desire to harm self or others. Onset of symptoms was July 09, 2023. 10:54 Method Of Arrival: Ambulatory cm10 10:54 Acuity: FINESSE 2 cm10 Triage Assessment: 10:40 General: Appears in no apparent distress. uncomfortable, Behavior is calm, cooperative. rs5 Respiratory: the patient has mild shortness of breath. 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 - Social history:: Smoking status: unknown. Screenin:00 [facility] ED Fall Risk Assessment (Adult) History of falling in the last 3 months, rs5 including since admission No falls in past 3 months (0 pts) Confusion or Disorientation No (0 pts) Intoxicated or Sedated No (0 pts) Impaired Gait No (0 pts) Mobility Assist Device Used No (0 pt) Altered Elimination No (0 pt) Score/Fall Risk Level 0 - 2 = Low Risk Oriented to surroundings, Maintained a safe environment. Abuse screen: Denies threats or abuse. Nutritional screening: No deficits noted. Tuberculosis screening: No symptoms or risk factors identified. Assessment: 10:55 General: Appears in no apparent distress. comfortable, Behavior is calm, cooperative. rs5 Pain: Complains of pain in head Pain does not radiate. Pain currently is 4 out of 10 on a pain scale. Quality of pain is described as aching, Pain began gradually, Is continuous. Neuro: Level of Consciousness is awake, alert, obeys commands, Oriented to person, place, time, situation. Cardiovascular: Reports intermittent palpitations Denies chest pain, Rhythm is sinus tachycardia. Respiratory: Reports cough that is non-productive, since yesterday Airway is patent Respiratory effort is even, unlabored, Breath sounds are clear bilaterally. GI: Abdomen is round non-distended, Bowel sounds present X 4 quads. Abd is soft and non tender X 4 quads. : No signs and/or symptoms were reported regarding the genitourinary system. EENT: No signs and/or symptoms were reported regarding the EENT system. Reports. Derm: Skin is intact, Skin is pink, warm \T\ dry. Musculoskeletal: Range of motion: intact in all extremities. 11:15 Reassessment: Provider notified pt's HR is elevated. rs5 12:20 Reassessment: Patient and/or family updated on plan of care and expected duration. Pain rs5 level reassessed. Patient is alert, oriented x 3, equal unlabored respirations, skin warm/dry/pink. Cardiovascular: Denies chest pain, Rhythm is sinus tachycardia. Cardiovascular: Denies palpitations. Respiratory: Airway is patent Respiratory effort is even, unlabored. 13:29 Reassessment: No changes from previously documented assessment. rs5 13:39 Reassessment: Provider notified pt has an oral temp of 101.2. rs5 14:42 Reassessment: Patient and/or family updated on plan of care and expected duration. Pain rs5 level reassessed. Patient is alert, oriented x 3, equal unlabored respirations, skin warm/dry/pink. Patient denies pain at this time. Patient states feeling better. Patient states symptoms have improved. oral temp 98.2. Cardiovascular: Rhythm is sinus tachycardia. Respiratory: Airway is patent Respiratory effort is even, unlabored. 16:00 Reassessment: Patient and/or family updated on plan of care and expected duration. Pain rs5 level reassessed. Patient is alert, oriented x 3, equal unlabored respirations, skin warm/dry/pink. 17:20 Reassessment: No changes from previously documented assessment. Patient denies pain at rs5 this time. 18:30 Reassessment: Pt in bed, eyes closed, respirations even and unlabored, normal sinus rs5 rhythm noted on monitor, side rails up x2, call light within reach. 19:18 General: Appears in no apparent distress. comfortable, Behavior is calm, cooperative. lg3 Pain: Denies pain. Neuro: No deficits noted. Mackay Agitation-Sedation Scale (RASS): 0 - Alert and Calm Level of Consciousness is awake, alert, obeys commands, Oriented to person, place, time, situation. Cardiovascular: No deficits noted. Denies chest pain, Capillary refill < 3 seconds Clubbing of nail beds is absent JVD is absent Patient's skin is warm and dry. Respiratory: No deficits noted. Reports cough that is Airway is patent Respiratory effort is even, unlabored, Respiratory pattern is regular, symmetrical. GI: No deficits noted. No signs and/or symptoms were reported involving the gastrointestinal system. Abdomen is round non-distended. : No deficits noted. No signs and/or symptoms were reported regarding the genitourinary system. EENT: No deficits noted. Reports nasal congestion nasal discharge. Derm: No deficits noted. No signs and/or symptoms reported regarding the dermatologic system. Skin is intact, is healthy with good turgor, Skin is dry, Skin is normal, Skin temperature is warm. Musculoskeletal: No deficits noted. Circulation, motion, and sensation intact. Range of motion: intact in all extremities. 20:57 Reassessment: Patient appears in no apparent distress at this time. No changes from lg3 previously documented assessment. Patient and/or family updated on plan of care and expected duration. Pain level reassessed. Patient is alert, oriented x 3, equal unlabored respirations, skin warm/dry/pink. Vital Signs: 10:54 BP 143 / 93; Pulse 160; Resp 20; Temp 98.4; Pulse Ox 99% on R/A; Weight 72.57 kg; cm10 Height 5 ft. 1 in. ; 11:01 BP 132 / 98; Pulse 143; Resp 18; Pulse Ox 98% on R/A; iw 11:32 BP 133 / 92; Pulse 129; Resp 16; Pulse Ox 100% on R/A; iw 12:20 BP 120 / 79; Pulse 127; Resp 18; Pulse Ox 99% on R/A; rs5 13:29 BP 112 / 84; Pulse 125; Resp 18; Pulse Ox 99% on R/A; rs5 13:39 Temp 101.2(O); rs5 14:40 BP 115 / 80; Pulse 110; Resp 17; Temp 98.2(O); Pulse Ox 99% on R/A; rs5 19:18 BP 110 / 77; Pulse 104; Resp 17 S; Pulse Ox 99% on R/A; lg3 10:54 Body Mass Index 30.23 (72.57 kg, 154.94 cm) cm10 ED Course: 10:39 Patient arrived in ED. rg4 10:40 Jet Bradshaw MD is Private Physician. rg4 10:40 Aric Sanon DO is Attending Physician. ms3 10:55 Triage completed. cm10 10:55 Arm band placed on Patient placed in an exam room, on cardiac tech, on pulse cm10 oximetry. EKG completed in triage. Results shown to MD. 10:56 EKG done, by ED staff, reviewed by Aric Sanon DO. cm10 11:00 Patient has correct armband on for positive identification. Placed in gown. Bed in low rs5 position. Call light in reach. Side rails up X2. 11:04 Jose Jordan, RN is Primary Nurse. rs5 11:05 Initial lab(s) drawn, by me, sent to lab. First set of blood cultures drawn by me. em1 Inserted saline lock: 20 gauge in right wrist, using aseptic technique. Blood collected. 11:09 CBC with Diff Sent. em1 11:09 CMP Sent. em1 11:09 Lactate w/ 2H reflex if indic. Sent. em1 11:09 Protime (+inr) Sent. em1 11:09 Ptt, Activated Sent. em1 11:09 Urinalysis w/ reflexes Sent. em1 11:39 Chest Single View XRAY In Process Unspecified. EDMS 14:29 CT Chest For PE Angio In Process Unspecified. EDMS 15:54 Jet Bradshaw MD is Hospitalizing Provider. ms3 19:18 Client placed on continuous cardiac and pulse oximetry monitoring. NIBP monitoring lg3 applied. Door closed. Noise minimized. Warm blanket given. Family accompanied patient. 19:18 Patient maintains SpO2 saturation greater than 95% on room air. lg3 12 15:40 No provider procedures requiring assistance completed. rs5 15:40 Patient admitted, IV remains in place. rs5 Administered Medications: 07/09 11:05 Drug: NS 0.9% IV 1000 ml IV at 1000 ml once Route: IV; Rate: 1000 ml; Site: right wrist;rs5 11:30 Follow up: Response: No adverse reaction rs5 19:24 Follow up: IV Status: Completed infusion; IV Intake: 1000ml lg3 12:25 Drug: Rocephin IV 1 grams IV at calculated rate once; Given slow IV push per pharmacy rs5 instructions Route: IV; Rate: calculated rate; Site: right antecubital; 12:42 Follow up: Response: No adverse reaction rs5 19:24 Follow up: Response: No adverse reaction; IV Status: Completed infusion lg3 12:25 Drug: AZITHromycin IVPB 500 mg IVPB once over 1 hrs; (mix in 250 mL NS) Route: IVPB; rs5 Infused Over: 1 hrs; Site: right antecubital; 12:42 Follow up: Response: No adverse reaction rs5 19:24 Follow up: Response: No adverse reaction; IV Status: Completed infusion; IV Intake: lg3 250ml 13:39 Drug: NS 0.9% IV 1000 ml IV at 1 bolus Per protocol; 1000 mL bolus Route: IV; Rate: 1 rs5 bolus; Site: left antecubital; 14:00 Follow up: Response: No adverse reaction rs5 19:23 Follow up: IV Status: Completed infusion; IV Intake: 1000ml lg3 13:46 Drug: Ibuprofen PO 600 mg PO once Route: PO; rs5 14:42 Follow up: Response: No adverse reaction; Temperature is decreased rs5 13:46 Drug: Acetaminophen PO 1000 mg PO once Route: PO; rs5 14:42 Follow up: Response: No adverse reaction; Temperature is decreased rs5 19:14 Drug: Oseltamivir PO 75 mg PO once Route: PO; lg3 19:23 Follow up: Response: No adverse reaction lg3 Medication: 11:20 VIS not applicable for this client. rs5 Intake: 19:23 IV: 1000ml; Total: 1000ml. lg3 19:24 IV: 250ml; Total: 1250ml. lg3 19:24 IV: 1000ml; Total: 2250ml. lg3 Outcome: 15:56 Decision to Hospitalize by Provider. ms3 07/10 15:40 Admitted to Med/surg accompanied by tech, with chart, rs5 Condition: stable Instructed on the need for admit, Demonstrated understanding of instructions, 15:44 Patient left the ED. ld1 Signatures: Dispatcher [employer] EDMS Alina Castano, RN RN iw Raleigh Bertrand em1 Jaycee Gonzalez rg4 Cinthia Phan RN RN lg3 Aric Sanon, DO ms3 Leana Sanon RN RN ld1 Jose Jordan RN YUNI rs5 Herminia Bertrand RN RN cm10 Corrections: (The following items were deleted from the chart) 07/09 14:58 10:55 Allergies: No Known Allergies; cm10 rs5 14:58 10:55 Allergies: Joseph's; rs5 rs5 19:14 17:20 Reassessment: No changes from previously documented assessment. rs5 rs5 19:15 14:40 Temp 98.2F Oral; rs5 rs5
--- NOTE | 2023-07-09 15:56 | EDPHYS ---
Physician Documentation [facility] Name: Annabella Desouza Age: 38 yrs Sex: Female : 1985 Arrival Date: 07/09/2023 Time: 10:38 Bed 4 Private MD: Jet Bradshaw V ED Physician Aric Sanon HPI: 07/09 10:49 This 38 yrs old Female presents to ER via Unassigned with complaints of ms3 Shortness Of Breath, Palpitations. 10:49 38-year-old female with past medical history of granulomatosis with polyangiitis ms3 presents to the emergency department for elevated heart rate and shortness of breath. Patient states her heart rate is in the 160s. Patient states she was recently diagnosed with GPA and placed on prednisone. Patient notes she has been febrile with a temperature of 100. Patient states she took Tylenol 1 hour prior to arrival. Patient denies pain. Patient endorses fatigue and cough. Patient states her kids have recently been sick. 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 - Social history:: Smoking status: unknown. ROS: 10:49 Constitutional: Negative for fever, and chills. Neck: Negative for injury, pain, and ms3 swelling, Abdomen/GI: Negative for abdominal pain, nausea, vomiting, diarrhea, and constipation, 10:49 Cardiovascular: Positive for palpitations, 10:49 Respiratory: Positive for shortness of breath, 10:49 All other systems are negative, Exam: 10:49 Constitutional: This is a well developed, well nourished patient who is awake, alert, ms3 and in no acute distress. Head/Face: Normocephalic, atraumatic. Neck: Trachea midline, no cervical lymphadenopathy. Supple, full range of motion without nuchal rigidity, or vertebral point tenderness. No Meningismus. Chest/axilla: Normal chest wall appearance and motion. Nontender with no deformity. 10:49 Respiratory: Lungs have equal breath sounds bilaterally, clear to auscultation and percussion. No rales, rhonchi or wheezes noted. No increased work of breathing, no retractions or nasal flaring. Abdomen/GI: Soft, non-tender, with normal bowel sounds. No distension or tympany. No guarding or rebound. No evidence of tenderness throughout. Skin: Warm, dry with normal turgor. Normal color with no rashes, no lesions, and no evidence of cellulitis. 10:49 Cardiovascular: Rate: tachycardic, actual rate is 160 bpm, Rhythm: regular, Pulses: no pulse deficits are appreciated, Heart sounds: normal, normal S1and S2, 10:49 ECG was reviewed by the Attending Physician. ms3 Vital Signs: 10:54 BP 143 / 93; Pulse 160; Resp 20; Temp 98.4; Pulse Ox 99% on R/A; Weight 72.57 kg; cm10 Height 5 ft. 1 in. ; 11:01 BP 132 / 98; Pulse 143; Resp 18; Pulse Ox 98% on R/A; iw 11:32 BP 133 / 92; Pulse 129; Resp 16; Pulse Ox 100% on R/A; iw 12:20 BP 120 / 79; Pulse 127; Resp 18; Pulse Ox 99% on R/A; rs5 13:29 BP 112 / 84; Pulse 125; Resp 18; Pulse Ox 99% on R/A; rs5 13:39 Temp 101.2(O); rs5 14:40 BP 115 / 80; Pulse 110; Resp 17; Temp 98.2(O); Pulse Ox 99% on R/A; rs5 19:18 BP 110 / 77; Pulse 104; Resp 17 S; Pulse Ox 99% on R/A; lg3 10:54 Body Mass Index 30.23 (72.57 kg, 154.94 cm) cm10 MDM: 10:47 Patient medically screened. ms3 10:49 Differential diagnosis: Anemia pneumonia, pulmonary edema, Pulmonary Embolism. ms3 15:56 Data reviewed: vital signs, nurses notes, and as a result, I will admit patient. ms3 Consideration of Admission/Observation Patient was admitted/placed on observation. Management of patient was discussed with the following: Hospitalist: Dr Bradshaw. I considered the following discharge prescriptions or medication management in the emergency department Medications were administered in the Emergency Department. See MAR. Independent interpretation of the following test(s) in the Emergency Department EKG: See my EKG interpretation above. Counseling: I had a detailed discussion with the patient and/or guardian regarding the historical points, exam findings, and any diagnostic results supporting the discharge/admit diagnosis, lab results, radiology results, the need for further work-up and treatment in the hospital. ED course: Discussed case with Dr. Bradshaw and he agrees with observation. Discussed plan with patient and her mother and they understand agree with plan. All questions were answered. 07/09 10:48 Order name: Blood Culture Adult (2); Complete Time: 13:27 ms3 07/09 10:48 Order name: CBC with Diff; Complete Time: 12:16 ms3 07/09 10:48 Order name: CMP; Complete Time: 12:16 ms3 07/09 10:48 Order name: Lactate w/ 2H reflex if indic.; Complete Time: 12:16 ms3 07/09 10:48 Order name: Protime (+inr); Complete Time: 12:16 ms3 07/09 10:48 Order name: Ptt, Activated; Complete Time: 12:16 ms3 07/09 10:48 Order name: Urinalysis w/ reflexes; Complete Time: 13:25 ms3 07/09 10:48 Order name: Troponin HS; Complete Time: 12:16 ms3 07/09 10:49 Order name: Test, Urine; Complete Time: 13:25 ms3 07/09 10:54 Order name: Flu; Complete Time: 14:15 ms3 07/09 10:54 Order name: SARS RAPID; Complete Time: 14:15 ms3 07/09 13:26 Order name: D-Dimer; Complete Time: 14:15 ms3 07/09 19:09 Order name: Basic Metabolic Panel EDLA 07/09 19:09 Order name: Basic Metabolic Panel; Complete Time: 13:27 EDMS 07/09 19:09 Order name: Basic Metabolic Panel; Complete Time: 07:36 EDMS 07/09 19:09 Order name: Basic Metabolic Panel EDLA 07/09 19:09 Order name: Basic Metabolic Panel EDLA 07/09 19:09 Order name: Basic Metabolic Panel EDMS 07/09 19:09 Order name: Basic Metabolic Panel EDMS 07/09 19:09 Order name: Basic Metabolic Panel EDLA 07/09 19:09 Order name: CBC with Automated Diff EDMS 07/09 19:09 Order name: CBC with Automated Diff; Complete Time: 13:27 EDMS 07/09 19:09 Order name: CBC with Automated Diff; Complete Time: 07:36 EDMS 07/09 19:09 Order name: CBC with Automated Diff EDMS 07/09 19:09 Order name: CBC with Automated Diff EDMS 07/09 19:09 Order name: CBC with Automated Diff EDMS 07/09 19:09 Order name: CBC with Automated Diff EDMS 07/09 19:09 Order name: CBC with Automated Diff EDMS 07/09 10:48 Order name: Chest Single View XRAY; Complete Time: 12:16 ms3 07/09 14:16 Order name: CT Chest For PE Angio; Complete Time: 14:59 ms3 07/09 10:48 Order name: EKG; Complete Time: 10:48 ms3 07/09 10:48 Order name: Accucheck; Complete Time: 11:11 ms3 07/09 10:48 Order name: Cardiac monitoring; Complete Time: 11:11 ms3 07/09 10:48 Order name: EKG - Nurse/Tech; Complete Time: 10:54 ms3 07/09 10:48 Order name: IV Saline Lock - Large Bore; Complete Time: 11:09 ms3 07/09 10:48 Order name: Labs collected and sent; Complete Time: 11:09 ms3 07/09 10:48 Order name: O2 Per Protocol; Complete Time: 11:12 ms3 07/09 10:48 Order name: O2 Sat Monitoring; Complete Time: 11:11 ms3 07/09 10:48 Order name: Vital Signs; Complete Time: 11:11 ms3 07/09 10:48 Order name: IV Saline Lock; Complete Time: 11:09 ms3 EC:49 Rate is 158 beats/min. Rhythm is regular. QRS [place] is Normal. MS interval is normal. ms3 QRS interval is normal. QT interval is normal. Clinical impression: Sinus tachycardia. Interpreted by me. Administered Medications: 11:05 Drug: NS 0.9% IV 1000 ml IV at 1000 ml once Route: IV; Rate: 1000 ml; Site: right wrist;rs5 11:30 Follow up: Response: No adverse reaction rs5 19:24 Follow up: IV Status: Completed infusion; IV Intake: 1000ml lg3 12:25 Drug: Rocephin IV 1 grams IV at calculated rate once; Given slow IV push per pharmacy rs5 instructions Route: IV; Rate: calculated rate; Site: right antecubital; 12:42 Follow up: Response: No adverse reaction rs5 19:24 Follow up: Response: No adverse reaction; IV Status: Completed infusion lg3 12:25 Drug: AZITHromycin IVPB 500 mg IVPB once over 1 hrs; (mix in 250 mL NS) Route: IVPB; rs5 Infused Over: 1 hrs; Site: right antecubital; 12:42 Follow up: Response: No adverse reaction rs5 19:24 Follow up: Response: No adverse reaction; IV Status: Completed infusion; IV Intake: lg3 250ml 13:39 Drug: NS 0.9% IV 1000 ml IV at 1 bolus Per protocol; 1000 mL bolus Route: IV; Rate: 1 rs5 bolus; Site: left antecubital; 14:00 Follow up: Response: No adverse reaction rs5 19:23 Follow up: IV Status: Completed infusion; IV Intake: 1000ml lg3 13:46 Drug: Ibuprofen PO 600 mg PO once Route: PO; rs5 14:42 Follow up: Response: No adverse reaction; Temperature is decreased rs5 13:46 Drug: Acetaminophen PO 1000 mg PO once Route: PO; rs5 14:42 Follow up: Response: No adverse reaction; Temperature is decreased rs5 19:14 Drug: Oseltamivir PO 75 mg PO once Route: PO; lg3 19:23 Follow up: Response: No adverse reaction lg3 Disposition Summary: 07/09/23 15:56 Hospitalization Ordered Notes: Hospitalization Status: Observation ms3 Provider: Jet Bradshaw ms3 Condition: Stable ms3 Problem: new ms3 Symptoms: are unchanged ms3 Bed/Room Type: Standard ms3 Location: Telemetry/MedSurg (observation)(07/10/23 13:51) pat Room Assignment: 215(07/10/23 13:51) [facility] Diagnosis - Influenza due to identified novel influenza A virus ms3 - Pneumonia, unspecified organism ms3 Forms: - Medication Reconciliation Form ms3 - SBAR form ms3 - Leadership Thank You Letter ms3 Signatures: Dispatcher [employer] Christine Solorio FNP-C FILTERING MACHINE TENDER-Csnw Temo Lucas MD MD rn Aguilar, Jose, RN RN 1 Cinthia Phan RN RN lg3 Aric Sanon DO DO ms3 Ibeth Mckenzieecca rv1 Jose Jordan, RN RN rs5 Herminia Bertrand RN RN cm10 Corrections: (The following items were deleted from the chart) 14:58 10:55 Allergies: No Known Allergies; cm10 rs5 14:58 10:55 Allergies: Joseph's; rs5 rs5 21:20 15:56 Telemetry/MedSurg (observation) ms3 rv1 21:20 15:56 ms3 rv1 07/10 13:51 1211 21:20 [facility] ER HOLD rv1 ja1 07/10 13:51 1211 21:20 ERHOLD- rv1 ja1
--- NOTE | 2023-07-09 19:05 | P.SSS ---
Patient History Date of Service: 07/09/23 Reason for admission: TACHYCARIDA History of Present Illness: SOLA HAS HAD CHRONIC SINUS ISSUES FOR TWO MONTHS. SHE HAS HAD COUGH, FEVER, YELLOWSPUTUM. FAILED TO IMPROVE AFTER AUGMENTIN. I SENT HER TO ENT, THEY SAID SHE HAS LOT OF POLYPS BUT DOXYCYCLIN DID NOT HELP. SHE CALLED WITH HIGH FEVER AND LOT OF SINUS PAIN. I GAVE HER BACTRIM AND MEDROL, SENT HER TO DR. POWELL. HE SUSPECTED JAHAIRA'S SHE HAS VERY THICK SEPTUM. ANTIBODIES ARE POSITIVE PER HER RECORD. SHE IS HERE NOW SHE HAS TACHYCARDIA AND FEVER FOR TWO DAYS AND SHE IS FLU POSITIVE. THERE ARE ABOUT 4 PERIPHERAL NODULES, IRREGULAR. THIS SUGGESTS THE DIASNOSIS OF JAHAIRA'S. Allergies No Known Allergies Allergy (Unverified 08/20/18 08:01) Home medications list reviewed: Yes Home Medications: Codeine/APAP [Tylenol W/Codeine #3 tab] 1 tab PO Q6HP PRN #24 tab 08/21/18 Ibuprofen [Ibu] 600 mg PO TIDP PRN #90 tablet 08/21/18 - Past Medical/Surgical History Diabetic: No -: Hx. of fibroids -: Liver mass -: Removal of a Lypoma on back - Social History Alcohol use: No CD- Drugs: No Caffeine use: Yes Review of Systems 10-point ROS is otherwise unremarkable Physical Examination - Physical Exam General: Oriented x3, Mild distress HEENT: Atraumatic, PERRLA, Mucous membr. moist/pink, EOMI, Sclerae nonicteric Neck: Supple, 2+ carotid pulse no bruit, No LAD, Without JVD or thyroid abnormality Respiratory: Clear to auscultation bilaterally, Normal air movement Cardiovascular: Regular rate/rhythm, Normal S1 S2 Gastrointestinal: Normal bowel sounds, No tenderness Musculoskeletal: No tenderness Integumentary: No rashes Neurological: Normal gait, Normal speech, Normal strength at 5/5 x4 extr, Normal tone, Normal affect Lymphatics: No axilla or inguinal lymphadenopathy - Studies Laboratory Data (last 24 hrs) 07/09/23 07/09/23 07/09/23 11:05 11:05 11:05 WBC 13.90 H Hgb 13.4 Hct 40.3 Plt Count 483 H PT 12.1 INR 1.10 APTT 33.1 Sodium 135 L Potassium 3.4 L BUN 11 Creatinine 0.85 Glucose 108 H Total Bilirubin 0.4 AST 15 ALT 43 Alkaline Phosphatase 90 Microbiology Data (last 24 hrs): 07/09/23 13:27 Nasopharnyx Influenza Type A Antigen Screen - Final 07/09/23 13:27 Nasopharnyx Influenza Type B Antigen Screen - Final - Diagnosis (Problem(s)) (1) Influenza A Current Visit: Yes Status: Acute Plan: TAMIFLU IV FLUIDS (2) Jamal's granulomatosis Current Visit: Yes Status: Acute Plan: 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 DC HOME IN AM POSSIBLE. NO ORGAN DAMAGE YET. WILL AVOID STEROIDS. - Disposition Disposition: ROUTINE DISCHARGE Followup: Jet Bradshaw MD [Primary Care Provider] - Prvt As Needed
[2023-07-09] MEDS ORDERED: OSELTAMIVIR 75 MG CAP PO ONE (19:25)
[2023-07-09] MEDS: NACHLORIDE 0.45% 1,000 ML IV SCH (20:00)
[2023-07-09] MEDS: OSELTAMIVIR 75 MG CAP PO SCH (21:00)
[2023-07-09] MEDS ORDERED: NACHLORIDE 0.45% 1,000 ML IV ONE (23:42)
[2023-07-09 23:44] VITALS: BMI 30.2
[2023-07-10 03:38] LABS: Absolute Lymphocytes (CBC) 0.9 K/uL (0.7-4.9); Hematocrit 35.9 % (36.0-45.0); Lymphocytes % 7.9 % (15.3-44.8); MCV 77.4 fL (80-100); MPV 8.2 fL (7.6-11.3); Platelets 428 thou/uL (152-406); RBC Red Blood Cell Count 4.64 M/uL (3.86-4.86)
[2023-07-10] MEDS: ACETAMINOPHEN 500 MG TAB PO PRN (07:29)
[2023-07-10] MEDS ORDERED: ACETAMINOPHEN 500 MG TAB ONE (07:48)
[2023-07-10] MEDS ORDERED: INFLUENZA VACCINE (for 6+ mo) 0.5 ML DOSE IMVAC ONE (08:00)
[2023-07-10] MEDS: OSELTAMIVIR 75 MG CAP PO SCH ×2 (09:00→20:28)
[2023-07-10] MEDS: carvediloL 3.125 MG TAB PO SCH (09:00)
[2023-07-10] MEDS: NACHLORIDE 0.45% 1,000 ML IV SCH ×2 (09:10→22:40)
[2023-07-10] MEDS ORDERED: OSELTAMIVIR 75 MG CAP PO ONE (09:19)
[2023-07-10] MEDS ORDERED: carvediloL 6.25 MG TAB ONE (09:41)
--- NOTE | 2023-07-10 13:44 | EKG ---
Test Date: 2023-07-09 Test Time: 10:48:03 Social Worker Psychiatric: RICARDO MEASUREMENT RESULTS: Intervals: Rate: 158 ME: 112 QRSD: 70 QT: 254 QTc: 411 [place]: P: 67 ME: 112 QRS: 39 T: 54 INTERPRETIVE STATEMENTS: Sinus tachycardia Otherwise normal ECG No previous ECG available for comparison Electronically Signed On 07-10-23 13:40:19 ACCOUNTING INSTRUCTOR by Nolberto Cardona
--- NOTE | 2023-07-10 13:54 | ECHO ---
HEIGHT: 5 ft 1 in WEIGHT: 159 lb 13.362 oz DATE OF STUDY: 07/10/[address]: Jet Bradshaw MD 2-DIMENSIONAL: YES M.MODE: YES DOPPLER: YES COLOR FLOW: YES TDS: PORTABLE: YES DEFINITY: BUBBLE STUDY: DIAGNOSIS: FLU, PNEUMONIA CARDIAC HISTORY: CATHERIZATION: SURGERY: PROSTHETIC VALVE: PACEMAKER: MEASUREMENTS (cm) DIASTOLIC (NORMALS) SYSTOLIC (NORMALS) IVSd 0.8 (0.6-1.2) LA Diam 2.3 (1.9-4.0) LVEF 56% LVIDd 3.6 (3.5-5.7) LVIDs 2.6 (2.0-3.5) %FS 29% LVPWd 0.8 (0.6-1.2) Ao Diam 2.7 (2.0-3.7) 2 DIMENSIONAL ASSESSMENT: RIGHT ATRIUM: NORMAL LEFT ATRIUM: NORMAL RIGHT VENTRICLE: NORMAL LEFT VENTRICLE: NORMAL TRICUSPID VALVE: NORMAL MITRAL VALVE: NORMAL PULMONIC VALVE: NORMAL AORTIC VALVE: NORMAL PERICARDIAL EFFUSION: NONE AORTIC ROOT: NORMAL LEFT VENTRICULAR WALL MOTION: NORMAL DOPPLER/COLOR FLOW: SEE BELOW COMMENTS: 1. NORMAL LEFT VENTRICULAR EJECTION FRACTION 55-60% 2. NORMAL WALL MOTION 3. NORMAL DIASTOLIC FUNCTION 4. MILD TRICUSPID REGURGITATION 5. MILD MITRAL REGURGITATION TECHNOLOGIST: NICKIE RICH
[2023-07-10] MEDS ORDERED: ENOXAPARIN 40 MG/0.4 ML SQ SCH (17:00)
--- NOTE | 2023-07-10 21:16 | P.PN ---
Subjective Date of Service: 07/10/23 Chief Complaint: TACHYCARIDA Subjective: C/O voiced DYSPNEA ON EXERSION. FEVER. Review of Systems 10-point ROS is otherwise unremarkable General: Weakness Physical Examination - Vital Signs Temperature: 99.5 F Blood Pressure: 116/91 Pulse: 106 Respirations: 16 Pulse Ox (%): 97 - Physical Exam General: Oriented x3, Mild distress HEENT: Atraumatic, PERRLA, EOMI Neck: Supple, JVD not distended Respiratory: Clear to auscultation bilaterally, Normal air movement Cardiovascular: Regular rate/rhythm, Normal S1 S2 Gastrointestinal: Normal bowel sounds, No tenderness Musculoskeletal: No tenderness Integumentary: No rashes Neurological: Normal speech, Normal tone, Normal affect Lymphatics: No axilla or inguinal lymphadenopathy - Studies Medications List Reviewed: Yes Assessment And Plan - Current Problems (Diagnosis) (1) Influenza A Current Visit: Yes Status: Acute Plan: TAMIFLU IV FLUIDS TACHYCARDIA STARTED COREG STAT ECHO, NORMAL DYSPNEA BUT NO PE, NO PNEUMONIA, NO CHF. (2) Jamal's granulomatosis Current Visit: Yes Status: Acute Plan: WILL GET HER TO PROSTHODONTIST ONCE STABLE. DC HOME IN AM POSSIBLE. NO ORGAN DAMAGE YET. WILL AVOID STEROIDS.
[2023-07-11 02:53] LABS: Absolute Lymphocytes (CBC) 1.4 K/uL (0.7-4.9); Hematocrit 37.3 % (36.0-45.0); Lymphocytes % 16.6 % (15.3-44.8); Platelets 456 thou/uL (152-406); RBC Red Blood Cell Count 4.85 M/uL (3.86-4.86)
[2023-07-11 04:29] VITALS: TEMP 98.6
[2023-07-11 04:46] VITALS: O2SAT 96
[2023-07-11] MEDS: carvediloL 3.125 MG TAB PO SCH (05:43)
--- NOTE | 2023-07-11 06:01 | P.CNS ---
Date of Consult: 07/10/23 Reason for Consult: Jamal's polyangiinitis, tachycardia Requesting Physician: Jet Bradshaw V Primary Care Provider: Dr. Bradshaw Chief Complaint: TACHYCARIDA History of Present Illness: Ms. Desouza is a [address] Bradshaw with newly diagnosed Jamal's polyangiinitis who will see Rheumatology this week. She has been taking Prednisone 40mg daily for nasal/sinus congestion. Her and then children have recently had Influenza. Ms. Desouza presented to the ED 07/09/23 with flu like symptoms. She was diagnosed with Influenza but her pulse on arrival was 160bpm. She had a CT for PE that was negative but for bilateral pulmonary nodules. Cardiology was consulted as a result of the tachycardia with increased risk of cardiomyopathy, aneurysm, myocarditis. Allergies No Known Allergies Allergy (Unverified 08/20/18 08:01) Home medications list reviewed: Yes Home Medications: predniSONE [Prednisone*] See Rx Instructions .ROUTE .COMPLEX 07/10/23 - Past Medical/Surgical History Diabetic: No -: Hx. of fibroids -: Liver mass -: Jamal's polyarteriitis -: Removal of a Lypoma on back - Social History Smoking Status: Unknown if ever smoked Alcohol use: No CD- Drugs: No Caffeine use: Yes Place of Residence: Home Review of Systems 10-point ROS is otherwise unremarkable General: As per HPI Eyes: Unremarkable ENT: As per HPI Respiratory: As per HPI Cardiovascular: As per HPI Gastrointestinal: Unremarkable Genitourinary: Unremarkable Musculoskeletal: Unremarkable Integumentary: Unremarkable Neurological: Unremarkable Physical Examination Temp Pulse Resp BP Pulse Ox 98.6 F 87 16 112/74 96 07/11/23 04:00 07/11/23 05:43 07/11/23 04:00 07/11/23 05:43 07/11/23 04:00 General: Alert, In no apparent distress, Oriented x3 HEENT: Atraumatic, Normocephalic, PERRLA Neck: Supple, 2+ carotid pulse no bruit Respiratory: Clear to auscultation bilaterally Cardiovascular: No edema, Regular rate/rhythm, Other (HR on exam 106 but with movement increases to 120) Capillary refill: <2 Seconds Gastrointestinal: Normal bowel sounds, Soft and benign Musculoskeletal: No clubbing Integumentary: No rashes Neurological: Normal speech, Normal tone External genitalia: Deferred Rectal: Deferred - Problems (1) Tachycardia with heart rate 141-160 beats per minute Current Visit: Yes Status: Acute Plan: ECHO (2) Influenza A Current Visit: Yes Status: Acute Plan: Increase fluid intake, continue Tamiflu. Antipyretics. Critical Care: No
--- NOTE | 2023-07-11 06:08 | P.PN ---
Subjective Date of Service: 07/11/23 Primary Care Provider: Dr. Bradshaw Chief Complaint: TACHYCARIDA Subjective: Tolerating diet, Improving, Other (remains tachycardic with movement) Review of Systems 10-point ROS is otherwise unremarkable General: As per HPI Eyes: Unremarkable ENT: As per HPI Respiratory: As per HPI Cardiovascular: As per HPI Gastrointestinal: Unremarkable Genitourinary: Unremarkable Musculoskeletal: Unremarkable Integumentary: Unremarkable Neurological: Unremarkable Lymphatics: Unremarkable Physical Examination - Vital Signs Temperature: 98.6 F Blood Pressure: 112/74 Pulse: 87 Respirations: 16 Pulse Ox (%): 96 - Physical Exam General: Alert, In no apparent distress, Oriented x3 HEENT: Atraumatic, Normocephalic, PERRLA Neck: Supple, 2+ carotid pulse no bruit Respiratory: Clear to auscultation bilaterally Cardiovascular: No edema, Regular rate/rhythm, Other (HR 120s during the night, increased tachycardia with movement ) Capillary refill: <2 Seconds Gastrointestinal: Normal bowel sounds, Soft and benign Musculoskeletal: No clubbing Integumentary: No rashes Lymphatics: No axilla or inguinal lymphadenopathy External genitalia: Deferred Rectal: Deferred - Studies Medications List Reviewed: Yes Assessment And Plan - Current Problems (Diagnosis) (1) Tachycardia with heart rate 141-160 beats per minute Current Visit: Yes Status: Acute Plan: ECHO 07/11/23 ECHO negative, EF preserved, pt remains tachycardic to the 130s with movement. Propranolol 40mg BID. Cardiology will sign off, pt will see Rheumatology upon discharge (2) Influenza A Current Visit: Yes Status: Acute Plan: Increase fluid intake, continue Tamiflu. Antipyretics.
[2023-07-11] MEDS: OSELTAMIVIR 75 MG CAP PO SCH (08:16)
[2023-07-11] MEDS: ACETAMINOPHEN 500 MG TAB PO PRN (08:16)
[2023-07-11] MEDS: NACHLORIDE 0.45% 1,000 ML IV SCH (08:20)
[2023-07-11 08:54] LABS: C-Reactive Protein 80.1 mg/L (<3.00); Thyroid Stimulating Hormone 1.58 uIU/mL (0.358-3.740)
--- NOTE | 2023-07-11 13:09 | P.DS ---
Admission Date: 07/11/23 Discharge Date: 07/11/23 Primary Care Provider: Dr. Bradshaw Disposition: ROUTINE DISCHARGE Discharge Condition: FAIR Reason for Admission: TACHYCARIDA - Problems (1) Influenza A Current Visit: Yes Status: Acute (2) Jamal's granulomatosis Current Visit: Yes Status: Acute Brief History of Present Illness: SOLA HAS HAD CHRONIC SINUS ISSUES FOR TWO MONTHS. SHE HAS HAD COUGH, FEVER, YELLOWSPUTUM. FAILED TO IMPROVE AFTER AUGMENTIN. I SENT HER TO ENT, THEY SAID SHE HAS LOT OF POLYPS BUT DOXYCYCLIN DID NOT HELP. SHE CALLED WITH HIGH FEVER AND LOT OF SINUS PAIN. I GAVE HER BACTRIM AND MEDROL, SENT HER TO DR. POWELL. HE SUSPECTED JAHAIRA'S SHE HAS VERY THICK SEPTUM. ANTIBODIES ARE POSITIVE PER HER RECORD. SHE IS HERE NOW SHE HAS TACHYCARDIA AND FEVER FOR TWO DAYS AND SHE IS FLU POSITIVE. THERE ARE ABOUT 4 PERIPHERAL NODULES, IRREGULAR. THIS SUGGESTS THE DIASNOSIS OF JAHAIRA'S. Hospital Course: SOLA CAME WITH DYSPNEA AND SORE NOSE. SHE HAS NEW DIAGNOSIS OF JAMAL'S GRANULOMATOSIS, BY POS ANTIBODIES. I HAD SENT HER TO DR. POWELL WITH REFRACTORY CHRONIC SINUSITIS. SHE ALSO HAS PERIPHERAL NODULES ON CT SCAN THAT CAN BE EXPLAINED BY VASCULITIS. SHE CAME WITH TACHYCARDIA AND IS POS FOR FLU. SHE IS BETTER ON TAMIFLU AND SMALL DOSE OF B [place]. SHE IS STABLE TO GO HOME. Vital Signs/Physical Exam: Temp Pulse Resp BP Pulse Ox 98.6 F 103 H 18 115/71 95 07/11/23 08:00 07/11/23 08:00 07/11/23 08:00 07/11/23 08:00 07/11/23 08:00 Laboratory Data at Discharge: WBC 8.20 thou/uL (4.3-10.9) 07/11/23 02:14 Hgb 12.0 g/dL (12.0-15.0) 07/11/23 02:14 Hct 37.3 % (36.0-45.0) 07/11/23 02:14 Plt Count 456 thou/uL (152-406) H 07/11/23 02:14 PT 12.1 SECONDS (9.5-12.5) 07/09/23 11:05 INR 1.10 07/09/23 11:05 APTT 33.1 SECONDS (24.3-36.9) 07/09/23 11:05 Sodium 142 mEq/L (136-145) 07/11/23 02:14 Potassium 4.0 mEq/L (3.5-5.1) 07/11/23 02:14 BUN 9 mg/dL (7-18) 07/11/23 02:14 Creatinine 0.69 mg/dL (0.55-1.02) 07/11/23 02:14 Glucose 107 mg/dL (74-106) H 07/11/23 02:14 Total Bilirubin 0.4 mg/dL (0.2-1.0) 07/09/23 11:05 AST 15 U/L (15-37) 07/09/23 11:05 ALT 43 U/L (13-56) 07/09/23 11:05 Alkaline Phosphatase 90 U/L (45-117) 07/09/23 11:05 Home Medications: predniSONE [Prednisone*] See Rx Instructions .ROUTE .COMPLEX 07/10/23 Oseltamivir [Tamiflu*] 75 mg PO BID #8 cap 07/11/23 carvediloL [Coreg*] 3.125 mg PO BID 6AM 6PM #180 tab 07/11/23 New Medications: carvediloL [Coreg*] 3.125 mg PO BID 6AM 6PM #180 tab Oseltamivir [Tamiflu*] 75 mg PO BID #8 cap Followup: Jet Bradshaw MD [ACTIVE - CAN ADMIT] - Prvt As Needed
[2023-07-11 15:19] VITALS: BP 127/72
== END 2023-07-11 15:19 | disposition home or self-care (01) | DRG 194 ==
LOC: ER 10:38 → ERHOLD 21:30 → 2ND 07-10 14:18 → OBSVTOIN 07-11 12:03
PROVIDERS: ADMIT Emergency Medicine; ATTEND Internal Medicine
DX: J10.1 Influenza due to other identified influenza virus with other respiratory manifestations (principal); M31.30 Wegener's granulomatosis without renal involvement; Z11.52 Encounter for screening for COVID-19; Z79.52 Long term (current) use of systemic steroids; Z79.899 Other long term (current) drug therapy
CPT/HCPCS: 36415; 71045; 71275; 80048; 80053; 81001; 81025; 83605; 84443; 84484; 85025; 85379; 85610; 85730; 86140; 87040; 87804; 87811; 93005; 93306; 96361; 96365; 96366; 96368; 99285; G0378; J0696; J7030; J7050; Q9967

== ENCOUNTER 2023-10-16 09:13 | Inpatient (IN) | payer BC ==
[2023-10-16] MEDS ORDERED: CEFTRIAXONE 1000 MG/VIAL ONE (10:21)
[2023-10-16] MEDS ORDERED: METOCLOPRAMIDE 10 MG/2mL INJ ONE (10:22)
[2023-10-16] MEDS ORDERED: DIPHENHYDRAMINE 50 MG/ML VIAL ONE (10:22)
[2023-10-16] MEDS ORDERED: ACETAMINOPHEN 500 MG TAB ONE (10:22)
[2023-10-16] MEDS ORDERED: NA CHLORIDE 0.9% 50 ML ONE (10:22)
[2023-10-16 10:23] LABS: Specific Gravity 1.015 (1.005-1.030)
[2023-10-16] MEDS ORDERED: NA CHLORIDE 0.9% 2,000 ML ONE (10:23)
[2023-10-16 10:27] LABS: Specific Gravity 1.015 (1.005-1.030); Urine Bacteria <20 /HPF (<20); Urine Bilirubin NEGATIVE (Negative); Urine Blood 3+ (OVER) (Negative); Urine Clarity Extremely Turbid (Clear); Urine Color Light-Orange (Yellow); Urine Culture Reflex Order NOT NEEDED; Urine Glucose NEGATIVE (Negative); Urine Ketones NEGATIVE (Negative); Urine Microscopic Reflex YN ORDER UMIC; Urine Mucus Slight /HPF (None Seen); Urine Nitrite NEGATIVE (Negative); Urine Protein 3+ (Negative); Urine RBC >50 /HPF (None Seen); Urine Urobilinogen Normal (Normal); Urine Yeast (Budding) Trace /HPF (None Seen); Urine pH 6.5 (5.0-7.0)
[2023-10-16 10:31] LABS: Absolute Eosinophils 0.2 K/uL (0-0.5); Absolute Lymphocytes (CBC) 1.5 K/uL (0.7-4.9); Absolute Monocytes 0.2 K/uL (0.1-1.3); Absolute Neutrophil 2.9 K/uL (1.8-8.0); Basophils % 0.8 % (0-1.3); Eosinophils % 4.7 % (0-4.4); Hematocrit 38.3 % (36.0-45.0); Hemoglobin 12.4 g/dL (12.0-15.0); Lymphocytes % 30.8 % (15.3-44.8); MCH 23.2 pg (27.0-35.0); MCHC 32.3 g/dL (32.0-36.0); MCV 71.6 fL (80-100); MPV 8.7 fL (7.6-11.3); Monocytes % 4.7 % (3.3-12.3); Nucleated Red Blood Cells % 0.1 % (0-0); Platelets 246 thou/uL (152-406); RBC Red Blood Cell Count 5.34 M/uL (3.86-4.86); Red Cell Distribution Width 19.7 % (12.1-15.2)
[2023-10-16 10:35] LABS: PT Prothrombin Time 13.6 SECONDS (9.5-12.5); PTT, Activated Partial Thromb 36.3 SECONDS (24.3-36.9); Protime INR 1.24
[2023-10-16 10:38] LABS: SARS-CoV-2 Antigen CONTROL BLUE LINE VIS/BG OK; SARS-CoV-2 Antigen Rapid Res Negative (Negative)
[2023-10-16 10:42] LABS: Albumin 2.7 g/dL (3.4-5.0); Albumin/Globulin Ratio 0.6 (1.1-1.8); Anion Gap 12.7 mEq/L (5.0-15.0); Bilirubin Total 0.6 mg/dL (0.2-1.0); Globulin 4.3 g/dL (2.3-3.5); Potassium 3.7 mEq/L (3.5-5.1)
[2023-10-16] MEDS ORDERED: ONDANSETRON 4 MG/2 ML VIAL IV PRN (11:08)
[2023-10-16] MEDS ORDERED: ACETAMINOPHEN 325 MG TABLET PO PRN (11:08)
--- NOTE | 2023-10-16 11:09 | ER ---
Nurse's Notes [facility] Name: Annabella Desouza Age: 38 yrs Sex: Female : 1985 Arrival Date: 10/16/2023 Time: 09:13 Bed 17 Private MD: Jet Bradshaw V Diagnosis: Cellulitis of face Presentation: 10/15 09:25 Chief complaint: Patient states: SOB, fever, N/V since Sunday after getting her nj1 "immunosuppressant" therapy. Coronavirus screen: Client denies travel out of the [place] in the last 14 days. difficulty breathing, fatigue, fever, nausea, vomiting. Client presents with at least one sign or symptom that may indicate coronavirus-19. Standard/surgical mask placed on the client. Ebola Screen: Patient denies travel to an Ebola-affected area in the 21 days before illness onset. Initial Sepsis Screen: Does the patient meet any 2 criteria? No. Patient's initial sepsis screen is negative. Does the patient have a suspected source of infection? No. Patient's initial sepsis screen is negative. Risk Assessment: Do you want to hurt yourself or someone else? Patient reports no desire to harm self or others. Onset of symptoms was October 10, 2023. 09:25 Method Of Arrival: Ambulatory [facility] 09:25 Acuity: FINESSE 2 [facility] Triage Assessment: 10:00 Respiratory: the patient has mild shortness of breath. [facility] 10:42 Respiratory: Onset: The symptoms/episode began/occurred gradually. 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 - Social history:: Smoking status: Patient denies any tobacco usage or history of. Screenin:00 [facility] ED Fall Risk Assessment (Adult) History of falling in the last 3 months, nj1 including since admission No falls in past 3 months (0 pts) Confusion or Disorientation No (0 pts) Intoxicated or Sedated No (0 pts) Impaired Gait No (0 pts) Mobility Assist Device Used No (0 pt) Altered Elimination No (0 pt) Score/Fall Risk Level 0 - 2 = Low Risk Oriented to surroundings, Maintained a safe environment, Hourly rounding (assess needs \\T\\ fall precautionary measures) done. 10:00 Abuse screen: Denies threats or abuse. Denies injuries from another. Nutritional nj1 screening: No deficits noted. Tuberculosis screening: No symptoms or risk factors identified. Assessment: 10:00 General: Appears in no apparent distress. uncomfortable, Behavior is calm, cooperative, nj1 appropriate for age. Pain: Denies pain. Neuro: Level of Consciousness is awake, alert, obeys commands, Oriented to person, place, time, situation. 10:00 Cardiovascular: Patient's skin is warm and dry. Respiratory: Reports shortness of nj1 breath Airway is patent Respiratory effort is even, unlabored. EENT: Pinna Red. 10:00 Cardiovascular: Rhythm is sinus tachycardia. nj1 11:30 Reassessment: Patient appears in no apparent distress at this time. Patient and/or nj1 family updated on plan of care and expected duration. Pain level reassessed. Patient is alert, oriented x 3, equal unlabored respirations, skin warm/dry/pink. Patient states feeling better. Patient states symptoms have improved. 18:42 Reassessment: SBAR report paperwork faxed at [phone]. Called 4th floor, spoke with Tiago mccoy to advise of fax. Vital Signs: 09:27 BP 147 / 103; Pulse 136; Resp 20; Pulse Ox 97% on R/A; nj1 09:36 Temp 98.6(O); nj1 09:50 Weight 68.04 kg (R); nj1 10:17 Pulse 119; ec2 10:29 BP 128 / 91; Pulse 113; Resp 20; Pulse Ox 100% on R/A; nj1 10:53 Pulse 102; ec2 11:38 BP 120 / 86; Pulse 89; Resp 16; Temp 98.5(TE); Pulse Ox 96% ; nj1 ED Course: 09:15 Patient arrived in ED. mr 09:16 Jet Bradshaw MD is Private Physician. mr 09:20 Curtis Swift MD is Attending Physician. ec2 09:25 Arm band placed on Patient placed in an exam room, on a stretcher. nj1 09:27 Triage completed. nj1 09:49 Maryann Patiño, YUNI is Primary Nurse. nj1 10:00 Patient has correct armband on for positive identification. Bed in low position. Call nj1 light in reach. Provided Education on: call light, fall precautions. 10:00 Client placed on continuous cardiac and pulse oximetry monitoring. NIBP monitoring nj1 applied. monitoring and evaluation advisor on. 10:05 Inserted saline lock: 22 gauge in right antecubital area, using aseptic technique. nj1 Blood collected. 10:25 CXR XRAY In Process Unspecified. EDMS 10:44 CT Abd/Pelvis - IV Contrast Only In Process Unspecified. EDMS 11:07 Jet Bradshaw MD is Hospitalizing Provider. ec2 12:00 No provider procedures requiring assistance completed. nj1 12:00 Patient admitted, IV remains in place. nj1 Administered Medications: 10:28 Drug: NS 0.9% IV (30 ml/kg) 30 ml/kg IV at bolus once; Sepsis Protocol Route: IV; Rate: nj1 bolus; Site: right antecubital; 12:30 Follow up: Response: No adverse reaction; IV Status: Completed infusion; IV Intake: nj1 2000ml 10:28 Drug: metoCLOPramide IVP 10 mg IVP once; over 1 to 2 minutes Route: IVP; Site: right nj1 antecubital; 11:30 Follow up: Response: No adverse reaction nj1 10:30 Drug: diphenhydrAMINE IVP 25 mg IVP once Route: IVP; Site: right antecubital; nj1 11:30 Follow up: Response: No adverse reaction nj1 10:33 Drug: Rocephin IV 1 grams IV at calculated rate once; Given slow IV push per pharmacy nj1 instructions Route: IV; Rate: calculated rate; Site: right antecubital; 11:00 Follow up: Response: No adverse reaction; IV Status: Completed infusion; IV Intake: [id number] 10:35 Drug: Acetaminophen PO 1000 mg PO once Route: PO; nj1 11:40 Follow up: Response: No adverse reaction nj1 Medication: 12:00 VIS not applicable for this client. nj1 Intake: 11:00 IV: 50ml; Total: 50ml. nj1 12:30 IV: 2000ml; Total: 2050ml. nj1 Outcome: 11:08 Decision to Hospitalize by Provider. ec2 12:00 Admitted to ER Hold. Please see [facility] for further documentation. nj1 12:00 Condition: stable nj1 12:00 Instructed on the need for admit, 19:11 Patient left the ED. nj1 Signatures: Dispatcher [employer] EDEm Villarreal, Reg Reg mr Maryann Patiño, RN RN nj1 Curtis Swift MD MD ec2 Corrections: (The following items were deleted from the chart) 09:27 09:25 Acuity: FINESSE 3 nj1 nj1 11:41 11:38 Pulse 89bpm; Resp 16bpm; Pulse Ox 96%; nj1 nj1
--- NOTE | 2023-10-16 11:09 | EDPHYS ---
Physician Documentation [facility] Name: Annabella Desouza Age: 38 yrs Sex: Female : 1985 Arrival Date: 10/16/2023 Time: 09:13 Bed 17 Private MD: Jet Bradshaw V ED Physician Curtis Swift HPI: 10/15 09:29 This 38 yrs old Female presents to ER via Ambulatory with complaints of ec2 Shortness Of Breath, Ear Pain, Fever. 09:29 Patient arrives today for evaluation of feeling unwell. Patient reports that for the ec2 past week she has been feeling unwell, states she been having some nausea and vomiting and diarrhea. 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 - Social history:: Smoking status: Patient denies any tobacco usage or history of. ROS: 09:30 Constitutional: as per hpi ec2 Exam: 09:30 Constitutional: GEN: NAD Head: atraumatic Eyes: EOMI Ears: External ears are ec2 normal. CV: Tachycardia LUNGS: no respiratory distress ABD: non-distended, soft, generally tender, no guarding, not rigid SKIN: no evidence of rashes MSK: no evidence of trauma NEURO: moves all extremities equally Vital Signs: 09:27 BP 147 / 103; Pulse 136; Resp 20; Pulse Ox 97% on R/A; nj1 09:36 Temp 98.6(O); nj1 09:50 Weight 68.04 kg (R); nj1 10:17 Pulse 119; ec2 10:29 BP 128 / 91; Pulse 113; Resp 20; Pulse Ox 100% on R/A; nj1 10:53 Pulse 102; ec2 11:38 BP 120 / 86; Pulse 89; Resp 16; Temp 98.5(TE); Pulse Ox 96% ; nj1 MDM: 09:27 Patient medically screened. ec2 09:30 Data reviewed: vital signs. ED course: Patient arrives today for feeling unwell. ec2 Examination remarkable for tachycardic individual was otherwise in no acute distress who has a generally tender abdomen with no focality. Will obtain lab work, septic workup, empirically give antibiotics. No identifiable bacterial infection identified at this point. Will evaluate for process such as urinary pathology, intra-abdominal pathology, intrathoracic pathology as well as electrolyte disturbances, renal dysfunction and anemia.. 10:42 ED course: CBC is reassuring. Urine is without infection, negative testing, ec2 negative COVID testing. . 10:52 ED course: Patient also commented that she had some redness around the right ear. ec2 Patient does have some periauricular cellulitis. Will admit for cellulitis.. 10:55 ED course: Metabolic profile shows creatinine 2.21, GFR of 28. Lactate within normal ec2 ranges. . 10:56 ED course: Looking at external records, patient with previous creatinine of 25 and GFR ec2 of 89. Today she she appears to have an TRUONG. . 10:57 ED course: On reassessment patient with improving tachycardia.. ec2 11:14 ED course: I discussed the case with Dr. Bradshaw who agrees accept this patient for ec2 admission. Patient updated on the plan of care and agreeable.. 03 09:29 Order name: Blood Culture Adult (2) ec2 10/15 09:29 Order name: CBC with Diff; Complete Time: 10:42 ec2 10/15 09:29 Order name: CMP; Complete Time: 10:54 ec2 10/15 09:29 Order name: Lactate w/ 2H reflex if indic.; Complete Time: 10:54 ec2 10/15 09:29 Order name: Protime (+inr); Complete Time: 10:42 ec2 10/15 09:29 Order name: Ptt, Activated; Complete Time: 10:42 ec2 10/15 09:29 Order name: Urinalysis w/ reflexes; Complete Time: 10:42 ec2 10/15 09:29 Order name: Test, Urine; Complete Time: 10:42 ec2 10/15 09:30 Order name: Influenza Screen (a \T\ B); Complete Time: 10:54 ec2 10/15 09:30 Order name: SARS RAPID; Complete Time: 10:42 ec2 10/15 11:14 Order name: CBC with Automated Diff EDMS 10/15 11:14 Order name: CBC with Automated Diff EDMS 10/15 11:14 Order name: Comprehensive Metabolic Panel EDMS 10/15 11:15 Order name: Comprehensive Metabolic Panel EDMS 10/15 09:29 Order name: CT Abd/Pelvis - IV Contrast Only; Complete Time: 11:38 ec2 10/15 09:29 Order name: CXR XRAY; Complete Time: 11:11 ec2 10/15 09:29 Order name: EKG; Complete Time: 09:29 ec2 10/15 09:29 Order name: Accucheck; Complete Time: 11:42 ec2 10/15 09:29 Order name: Cardiac monitoring; Complete Time: 10:29 ec2 10/15 09:29 Order name: EKG - Nurse/Tech; Complete Time: 13:36 ec2 10/15 09:29 Order name: IV Saline Lock - Large Bore; Complete Time: 10:29 ec2 10/15 09:29 Order name: Labs collected and sent; Complete Time: 10:29 ec2 10/15 09:29 Order name: O2 Per Protocol; Complete Time: 10:29 ec2 10/15 09:29 Order name: O2 Sat Monitoring; Complete Time: 10:29 ec2 10/15 09:29 Order name: Vital Signs; Complete Time: 10:29 ec2 Administered Medications: 10:28 Drug: NS 0.9% IV (30 ml/kg) 30 ml/kg IV at bolus once; Sepsis Protocol Route: IV; Rate: nj1 bolus; Site: right antecubital; 12:30 Follow up: Response: No adverse reaction; IV Status: Completed infusion; IV Intake: nj1 2000ml 10:28 Drug: metoCLOPramide IVP 10 mg IVP once; over 1 to 2 minutes Route: IVP; Site: right nj1 antecubital; 11:30 Follow up: Response: No adverse reaction nj1 10:30 Drug: diphenhydrAMINE IVP 25 mg IVP once Route: IVP; Site: right antecubital; nj1 11:30 Follow up: Response: No adverse reaction nj1 10:33 Drug: Rocephin IV 1 grams IV at calculated rate once; Given slow IV push per pharmacy nj1 instructions Route: IV; Rate: calculated rate; Site: right antecubital; 11:00 Follow up: Response: No adverse reaction; IV Status: Completed infusion; IV Intake: [id number] 10:35 Drug: Acetaminophen PO 1000 mg PO once Route: PO; nj1 11:40 Follow up: Response: No adverse reaction nj1 Disposition Summary: 10/16/23 11:08 Hospitalization Ordered Notes: Hospitalization Status: Inpatient Admission ec2 Provider: Jet Bradshaw ec2 Condition: Stable ec2 Problem: new ec2 Symptoms: have improved ec2 Bed/Room Type: Standard ec2 Location: Telemetry/MedSurg (Inpatient)(10/16/23 18:15) bd Room Assignment: 407(10/16/23 18:15) bd Diagnosis - Cellulitis of face ec2 Forms: - Medication Reconciliation Form ec2 - SBAR form ec2 - Leadership Thank You Letter ec2 Signatures: Dispatcher [employer] EDMari Irwin Kelly RN RN kb3 Maryann Patiño RN RN nj1 Curtis Swift MD MD ec2 Corrections: (The following items were deleted from the chart) 09:30 09:29 Patient arrives today for evaluation of feeling unwell . ec2 ec2 11:53 11:08 Telemetry/MedSurg (Inpatient) ec2 kb3 11:53 11:08 ec2 kb3 18:15 11:53 [facility] [[email or web address]] ER HOLD kb3 bd 18:15 11:53 ERHOLD- kb3 bd
--- NOTE | 2023-10-16 11:10 | RAD REPORT ---
[facility] 10[facility]23 [facility] CLINICAL HISTORY: COUGH COMPARISON: Chest Single View dated 07/09/2023; Chest Pa And Lat (2 Views) dated 12/27/2016; CHEST PA AND LAT 2 VIEW dated 12/11/2014; CHEST PA AND LAT 2 VIEW dated 08/08/2010 TECHNIQUE: Portable AP view of the chest. FINDINGS: The lungs are clear. No pneumothorax or effusion. The cardiomediastinal contours are unre markable. IMPRESSION: No acute cardiopulmonary process.
--- NOTE | 2023-10-16 11:15 | RAD REPORT ---
EXAM DESCRIPTION: CT - Abdomen Pelvis W Contrast - 10/16/2023 10:45 am CLINICAL HISTORY: ABD PAIN COMPARISON: No comparisons TECHNIQUE: Thin cut axial CT imaging of the abdomen and pelvis was performed following intravenous a dministration of 75 mL Isovue 300. Multiplanar reformats were generated and reviewed. All CT scans are performed using dose optimization technique as appropriate and may include automated exposure control or mA/KV adjustment according to patient size. FINDINGS: No suspicious findings in the lung bases apart from peripheral left lower lobe focally brandon r scarring with adjacent 5 mm calcified granuloma. The liver, spleen, adrenal glands, and pancreas show no suspicious findings. Gallbladder and biliary tree are also without suspicious finding. Lobular contour of the kidneys bilaterally with multifocal areas of cortical thinning and hypoattenua tion, favoring areas of scarring. Possibility of pyelonephritis is considered less likely. Motion art ifact somewhat limits evaluation. No hydronephrosis or suspicious renal mass. No dilated bowel loops or bowel wall thickening. No free air, free fluid or inflammatory stranding. S mall calcified uterine fibroid anteriorly. No hernia, mass or bulky lymphadenopathy. Urinary bladder is suboptimally distended limiting evaluation. No suspicious bony findings. IMPRESSION: Lobular contour of the kidneys with multifocal areas of cortical thinning and hypoattenu ation favoring multifocal scarring possibly in the setting of prior infections. Pyelonephritis is willian ng the differential considerations, however thought to be less likely. No other acute intra-abdominal process.
[2023-10-16 14:23] VITALS: BMI 28.3
--- NOTE | 2023-10-16 17:04 | P.CNS ---
Date of Consult: 10/16/23 Reason for Consult: TRUONG Requesting Physician: Curtis Swift Chief Complaint: Dyspnea History of Present Illness: 35 yo F presented to the ER with one week of malaise with associated anorexia, nausea and vomiting. She developed a fever today and was sent to the ER by her table assembler metal due to her immunosuppression. She reports recently finishing a one month course of weekly rituximab. She takes daily prednisone 20mg but has not been able to keep it down for the past two days. [id number] 09:29 This 38 yrs old Female presents to ER via Ambulatory with complaints of ec2 Shortness Of Breath, Ear Pain, Fever. 09:29 Patient arrives today for evaluation of feeling unwell. Patient reports that for the ec2 past week she has been feeling unwell, states she been having some nausea and vomiting and diarrhea. 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 Allergies No Known Allergies Allergy (Verified 10/16/23 19:51) Home medications list reviewed: Yes Home Medications: Propranolol [Inderal] 10 mg PO TID PRN 10/16/23 predniSONE [Prednisone] 20 mg PO DAILY 10/16/23 - Past Medical/Surgical History Diabetic: No -: Hx. of fibroids -: Liver mass -: Jamal's polyarteriitis -: Removal of a Lypoma on back - Social History Smoking Status: Unknown if ever smoked Alcohol use: No CD- Drugs: No Caffeine use: Yes Place of Residence: Home Review of Systems 10-point ROS is otherwise unremarkable General: Weakness, Malaise Gastrointestinal: Nausea Physical Examination General: Oriented x3, Cooperative HEENT: Atraumatic Neck: Supple Respiratory: Clear to auscultation bilaterally Cardiovascular: No edema, Regular rate/rhythm Gastrointestinal: Soft and benign, Non-distended Musculoskeletal: No clubbing, No contractures Integumentary: No rashes, No cyanosis Neurological: Normal speech Laboratory Data (last 24 hrs) 10/16/23 10/16/23 10/16/23 10:05 10:05 10:05 WBC 5.00 Hgb 12.4 Hct 38.3 Plt Count 246 PT 13.6 H INR 1.24 APTT 36.3 Sodium 133 L Potassium 3.7 BUN 24 H Creatinine 2.21 H Glucose 109 H Total Bilirubin 0.6 AST 37 ALT 37 Alkaline Phosphatase 88 Imagings Data: [id number] EXAM DESCRIPTION: RADChest Single View10/16/2023 10:23 am CLINICAL HISTORY: COUGH COMPARISON: Chest Single View dated 07/09/2023; Chest Pa And Lat (2 Views) dated 12/27/2016; CHEST PA AND LAT 2 VIEW dated 12/11/2014; CHEST PA AND LAT 2 VIEW dated 08/08/2010 TECHNIQUE: Portable AP view of the chest. FINDINGS: The lungs are clear. No pneumothorax or effusion. The cardiomediastinal contours are unremarkable. IMPRESSION: No acute cardiopulmonary process. [id number] EXAM DESCRIPTION: CT - Abdomen Pelvis W Contrast - 10/16/2023 10:45 am CLINICAL HISTORY: ABD PAIN COMPARISON: No comparisons TECHNIQUE: Thin cut axial CT imaging of the abdomen and pelvis was performed following intravenous administration of 75 mL Isovue 300. Multiplanar reformats were generated and reviewed. All CT scans are performed using dose optimization technique as appropriate and may include automated exposure control or mA/KV adjustment according to patient size. FINDINGS: No suspicious findings in the lung bases apart from peripheral left lower lobe focally near scarring with adjacent 5 mm calcified granuloma. The liver, spleen, adrenal glands, and pancreas show no suspicious findings. Gallbladder and biliary tree are also without suspicious finding. Lobular contour of the kidneys bilaterally with multifocal areas of cortical thinning and hypoattenuation, favoring areas of scarring. Possibility of pyelonephritis is considered less likely. Motion artifact somewhat limits evaluation. No hydronephrosis or suspicious renal mass. No dilated bowel loops or bowel wall thickening. No free air, free fluid or inflammatory stranding. Small calcified uterine fibroid anteriorly. No hernia, mass or bulky lymphadenopathy. Urinary bladder is suboptimally distended limiting evaluation. No suspicious bony findings. IMPRESSION: Lobular contour of the kidneys with multifocal areas of cortical thinning and hypoattenuation favoring multifocal scarring possibly in the setting of prior infections. Pyelonephritis is among the differential considerations, however thought to be less likely. No other acute intra- abdominal process. Conclusions/Impression: Stage III TRUONG may be due to hypovolemia complicated by vasculitis recently treated with Rituximab Microscopic Hematuria Proteinuria -No NSAIDs -Pulse steroids -Start IVF with NS -Consider a renal biopsy -Will reach out to rheumatology prn Hyponatremia -Start IVF with NS Hypoalbuminemia -Encourage nutrition as tolerated Microcytosis -Check iron status ER notes reviewed Thank you kindly for the consultation
[2023-10-16] MEDS: METHYLPREDNISOLONE 125 MG INJ IV ONE (19:38)
[2023-10-16] MEDS: NA CHLORIDE 0.9% 1,000 ML IV SCH (19:39)
[2023-10-16 20:23] VITALS: O2SAT 96
[2023-10-16] MEDS ORDERED: PROPRANOLOL HCL 10 MG TAB PO PRN (21:39)
[2023-10-17 06:58] LABS: Absolute Lymphocytes (CBC) 0.7 K/uL (0.7-4.9); Absolute Monocytes 0.1 K/uL (0.1-1.3); Absolute Neutrophil 1.5 K/uL (1.8-8.0); Basophils % 0.4 % (0-1.3); Eosinophils % 0.2 % (0-4.4); Hematocrit 32.3 % (36.0-45.0); Hemoglobin 10.4 g/dL (12.0-15.0); Lymphocytes % 30.4 % (15.3-44.8); MCH 23.6 pg (27.0-35.0); MCHC 32.3 g/dL (32.0-36.0); MPV 8.6 fL (7.6-11.3); Monocytes % 2.4 % (3.3-12.3); Neutrophils % 66.6 % (41.7-73.7); Nucleated Red Blood Cells % 0.8 % (0-0); Platelets 173 thou/uL (152-406); RBC Red Blood Cell Count 4.43 M/uL (3.86-4.86); Red Cell Distribution Width 19.5 % (12.1-15.2)
[2023-10-17 07:10] LABS: Albumin 2.3 g/dL (3.4-5.0); Albumin/Globulin Ratio 0.6 (1.1-1.8); Anion Gap 9.7 mEq/L (5.0-15.0); Bilirubin Total 0.3 mg/dL (0.2-1.0); Globulin 3.6 g/dL (2.3-3.5); Magnesium 2.1 mg/dL (1.6-2.4); Phosphorus 3.3 mg/dL (2.5-4.9); Potassium 3.7 mEq/L (3.5-5.1); Protein, Total 5.9 g/dL (6.4-8.2); Uric Acid 5.3 mg/dL (2.6-6.0)
[2023-10-17] MEDS: predniSONE 5 MG TAB PO SCH (09:00)
[2023-10-17 09:48] LABS: Specific Gravity 1.016 (1.005-1.030); Sqamous Epithelial <5 /HPF (None Seen); Urine Bacteria None Seen /HPF (<20); Urine Bilirubin NEGATIVE (Negative); Urine Blood 3+ (OVER) (Negative); Urine Clarity Turbid (Clear); Urine Color Light-Yellow (Yellow); Urine Culture Reflex Order NOT NEEDED; Urine Glucose 1+ (Negative); Urine Ketones NEGATIVE (Negative); Urine Micro Reflex YN NO BILL MICROSCOPIC; Urine Mucus Slight /HPF (None Seen); Urine Nitrite NEGATIVE (Negative); Urine Protein 2+ (Negative); Urine RBC 21-50 /HPF (None Seen); Urine Urobilinogen Normal (Normal); Urine WBC None Seen /HPF (<5); Urine Yeast (Budding) Trace /HPF (None Seen)
[2023-10-17] MEDS: VANCOMYCIN 1.5 GM in NA CHLORIDE 0.9% 500 ML IVPB ONE (09:57)
[2023-10-17] MEDS ORDERED: METHYLPREDNISOLONE 125 MG INJ IV ONE (10:21)
[2023-10-17 10:59] LABS: MA/CREAT RATIO 1381.7 (< 30.0); UR MICROALBUMIN 82.9 mg/dL (< 1.9); UR PROTEIN 150.4 mg/dL (<11.9); Urine Protein/Creatinine Ratio 2.51 ratio (<0.15)
[2023-10-17] MEDS: DRISDOL (VITAMIN D=ERGOCALCIFEROL) 50000 UNIT CAP PO SCH (11:40)
[2023-10-17] MEDS: METHYLPRED NA SUC 250 MG in NA CHLORIDE 0.9% 100 ML IV ONE (11:43)
[2023-10-17] MEDS: Ringers Lactate 1,000 ML IV SCH (11:43)
--- NOTE | 2023-10-17 21:35 | P.HP ---
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 SHE IS ON THERAPY BY PUBLIC AFFAIRS DIRECTOR. SHE DEVELOPED PAIN ON RIGHT AURICLE WITH REDNESS. IN ER SHE WAS FOUND TO HAVE ACUTE RENAL FAILURE ALSO. Allergies No Known Allergies Allergy (Verified 10/16/23 19:51) Home medications list reviewed: Yes Home Medications: Propranolol [Inderal] 10 mg PO TID PRN 10/16/23 predniSONE [Prednisone] 20 mg PO DAILY 10/16/23 - Past Medical/Surgical History Has patient received pneumonia vaccine in the past: No Diabetic: No -: Hx. of fibroids -: Liver mass -: Jamal's polyarteriitis -: Removal of a Lypoma on back - Social History Smoking Status: Never smoker Alcohol use: No CD- Drugs: No Caffeine use: Yes Place of Residence: Home Review of Systems 10-point ROS is otherwise unremarkable General: Weakness Physical Examination - Vital Signs Temperature: 97.6 F Blood Pressure: 147/56 Pulse: 65 Respirations: 17 Pulse Ox (%): 98 - Physical Exam General: Oriented x3, Acute distress, Mild distress HEENT: Atraumatic, PERRLA, Mucous membr. moist/pink, EOMI, Sclerae nonicteric Neck: Supple, 2+ carotid pulse no bruit, No LAD, Without JVD or thyroid abnormality Respiratory: Clear to auscultation bilaterally, Normal air movement Cardiovascular: Regular rate/rhythm, Normal S1 S2 Gastrointestinal: Normal bowel sounds, No tenderness Musculoskeletal: No tenderness Integumentary: No rashes, Other (R EAR INFLAMMATION. ) Neurological: Normal gait, Normal speech, Normal strength at 5/5 x4 extr, Normal tone, Normal affect Lymphatics: No axilla or inguinal lymphadenopathy Assessment and Plan - Problems (Diagnosis) (1) Cellulitis of ear Current Visit: Yes Status: Acute Plan: VANCOMYCIN 1.5 GM Q36H VANCO TROUGH FU. WILL CHANGE TO ZYVOX PA WHEN IMPROVED. (2) Acute nephritic syndrome Current Visit: Yes Status: Acute Plan: PULSE DOSE STEROID THERAPY BY DR HAMMONDS (3) Jamal's granulomatosis Current Visit: No Status: Acute Plan: SHE IS ON CHRONIC STEROIDS AND MAY AVE MORE IMMUNOUPPRESIVE RX IN FUTURE. (4) Tachycardia Current Visit: Yes Status: Acute Plan: SHE HAS BEEN FULLY EVALUATED IN PAST WITH ECHO, TSH, CT ANGIO ALL OKAY CONTINUE B LA[place]IS[place]. - Advance Directives Does patient have a Living Will: No Does patient have a Durable POA for Healthcare: No
--- NOTE | 2023-10-17 21:56 | P.PN ---
Date of Service: 10/17/23 Vital Signs Temp Pulse Resp BP Pulse Ox 97.6 F 65 17 147/56 H 98 10/17/23 21:35 10/17/23 21:35 10/17/23 21:35 10/17/23 21:35 10/17/23 21:35 Medications Acetaminophen (Acetaminophen 325 Mg Tablet) 650 mg PO Q4HP PRN PRN Reason: Pain scale 2-4 (Mild) Ergocalciferol (Drisdol (Vitamin D=Ergocalciferol) 89940 Unit Cap) 50,000 unit PO Q48H [facility] Stop: 10/19/23 12:01 Last Admin: 10/17/23 11:40 Dose: 50,000 unit Lactated Ringer's (Lactated Ringers) 1,000 mls @ 100 mls/hr IV .Q10H [facility] Last Admin: 10/17/23 20:47 Dose: 1,000 mls Vancomycin HCl 1.5 gm/ Sodium (Chloride) 500 mls @ 333.333 mls/hr IVPB Q36H [facility] Ondansetron HCl (Ondansetron 4 Mg/2 Ml Vial) 4 mg IV Q6HP PRN PRN Reason: NAUSEA / VOMITING Propranolol HCl (Propranolol Hcl 10 Mg Tab) 10 mg PO TID PRN PRN Reason: Tachycardia Microbiology Results 10/16/23 10:00 Blood - Blood Aerobic Blood Culture - Preliminary No growth in 24 hours. 10/16/23 10:00 Blood - Blood Anaerobic Blood Culture - Preliminary No growth in 24 hours. 10/16/23 10:06 Blood - Blood Aerobic Blood Culture - Preliminary No growth in 24 hours. 10/16/23 10:06 Blood - Blood Anaerobic Blood Culture - Preliminary No growth in 24 hours. 10/16/23 10:10 Nasopharnyx Influenza Type A Antigen Screen - Final 10/16/23 10:10 Nasopharnyx Influenza Type B Antigen Screen - Final Assessment/ Plan: Nephrology No dyspnea No chest pain Feeling better this morning with improved appetite Right ear pain No acute events overnight Vitals, medications, blood work and imaging reviewed in the chart General: Oriented x3, Cooperative HEENT: Atraumatic Neck: Supple Respiratory: Clear to auscultation bilaterally Cardiovascular: No edema, Regular rate/rhythm Gastrointestinal: Soft and benign, Non-distended Musculoskeletal: No clubbing, No contractures Integumentary: No rashes, No cyanosis Neurological: Normal speech Laboratory Data (last 24 hrs) 10/16/23 10/16/23 10/16/23 10:05 10:05 10:05 WBC 5.00 Hgb 12.4 Hct 38.3 Plt Count 246 PT 13.6 H INR 1.24 APTT 36.3 Sodium 133 L Potassium 3.7 BUN 24 H Creatinine 2.21 H Glucose 109 H Total Bilirubin 0.6 AST 37 ALT 37 Alkaline Phosphatase 88 Imagings Data: EXAM DESCRIPTION: RADChest Single View10/16/2023 10:23 am CLINICAL HISTORY: COUGH COMPARISON: Chest Single View dated 07/09/2023; Chest Pa And Lat (2 Views) dated 12/27/2016; CHEST PA AND LAT 2 VIEW dated 12/11/2014; CHEST PA AND LAT 2 VIEW dated 08/08/2010 TECHNIQUE: Portable AP view of the chest. FINDINGS: The lungs are clear. No pneumothorax or effusion. The ca rdiomediastinal contours are unremarkable. IMPRESSION: No acute cardiopulmonary process. EXAM DESCRIPTION: CT - Abdomen Pelvis W Contrast - 10/16/2023 10:45 am CLINICAL HISTORY: ABD PAIN COMPARISON: No comparisons TECHNIQUE: Thin cut axial CT imaging of the abdomen and pelvis was performed following intravenous administration of 75 mL Isovue 300. Multiplanar reformats were generated and reviewed. All CT scans are performed using dose optimization technique as appropriate and may include automated exposure control or mA/KV adjustment according to patient size. FINDINGS: No suspicious findings in the lung bases apart from peripheral left lower lobe focally near scarring with adjacent 5 mm calcified granuloma. The liver, spleen, adrenal glands, and pancreas show no suspicious findings. Gallbladder and biliary tree are also without suspicious finding. Lobular contour of the kidneys bilaterally with multifocal areas of cortical thinning and hypoattenuation, favoring areas of scarring. Possibility of pyelonephritis is considered less likely. Motion artifact somewhat limits evaluation. No hydronephrosis or suspicious renal mass. No dilated bowel loops or bowel wall thickening. No free air, free fluid or inflammatory stranding. Small calcified uterine fibroid anteriorly. No hernia, mass or bulky lymphadenopathy. Urinary bladder is suboptimally distended limiting evaluation. No suspicious bony findings. IMPRESSION: Lobular contour of the kidneys with multifocal areas of cortical thinning and hypoattenuation favoring multifocal scarring possibly in the setting of prior infections. Pyelonephritis is among the differential considerations, however thought to be less likely. No other acute intra- abdominal process. Conclusions/Impression: Stage III TRUONG may be due to hypovolemia complicated by vasculitis recently treated with Rituximab Microscopic Hematuria Proteinuria Hx Granulomatosis with Polyangiitis -No NSAIDs -Pulse steroids -Change IVF to LR -Consider a renal biopsy -Will reach out to rheumatology prn Hyponatremia, improved HTN -Continue Propranolol Hypoalbuminemia -Encourage nutrition Microcytic Anemia Iron Saturation 32% -Monitor H&H Case reviewed with Dr. Bradshaw
[2023-10-18 06:49] LABS: Absolute Lymphocytes (CBC) 0.7 K/uL (0.7-4.9); Absolute Monocytes 0.5 K/uL (0.1-1.3); Absolute Neutrophil 3.9 K/uL (1.8-8.0); Anion Gap 11.6 mEq/L (5.0-15.0); Basophils % 0.2 % (0-1.3); C-Reactive Protein 95.3 mg/L (<3.00); Eosinophils % 0.1 % (0-4.4); Hematocrit 28.9 % (36.0-45.0); Hemoglobin 9.4 g/dL (12.0-15.0); Lymphocytes % 12.9 % (15.3-44.8); MCH 23.7 pg (27.0-35.0); MCHC 32.7 g/dL (32.0-36.0); MCV 72.5 fL (80-100); MPV 8.7 fL (7.6-11.3); Monocytes % 9.7 % (3.3-12.3); Neutrophils % 77.1 % (41.7-73.7); Platelets 163 thou/uL (152-406); Potassium 3.6 mEq/L (3.5-5.1); RBC Red Blood Cell Count 3.99 M/uL (3.86-4.86); Red Cell Distribution Width 19.5 % (12.1-15.2)
[2023-10-18] MEDS ORDERED: VANCOMYCIN 1.25 GM in NA CHLORIDE 0.9% 250 ML IVPB SCH (09:00)
[2023-10-18] MEDS: METHYLPREDNISOLONE 125 MG INJ IV ONE (10:04)
--- NOTE | 2023-10-18 10:59 | P.PN ---
Date of Service: 10/18/23 Vital Signs Temp Pulse Resp BP Pulse Ox 97.8 F 65 17 140/78 96 10/18/23 08:00 10/18/23 08:00 10/18/23 08:00 10/18/23 08:00 10/18/23 08:00 Medications Acetaminophen (Acetaminophen 325 Mg Tablet) 650 mg PO Q4HP PRN PRN Reason: Pain scale 2-4 (Mild) Ergocalciferol (Drisdol (Vitamin D=Ergocalciferol) 60780 Unit Cap) 50,000 unit PO Q48H [facility] Stop: 10/19/23 12:01 Last Admin: 10/17/23 11:40 Dose: 50,000 unit Lactated Ringer's (Lactated Ringers) 1,000 mls @ 100 mls/hr IV .Q10H [facility] Last Admin: 10/18/23 10:10 Dose: 1,000 mls Vancomycin HCl 1.5 gm/ Sodium (Chloride) 500 mls @ 333.333 mls/hr IVPB Q36H [facility] Ondansetron HCl (Ondansetron 4 Mg/2 Ml Vial) 4 mg IV Q6HP PRN PRN Reason: NAUSEA / VOMITING Propranolol HCl (Propranolol Hcl 10 Mg Tab) 10 mg PO TID PRN PRN Reason: Tachycardia Microbiology Results 10/16/23 10:00 Blood - Blood Aerobic Blood Culture - Preliminary No growth in 24 hours. 10/16/23 10:00 Blood - Blood Anaerobic Blood Culture - Preliminary No growth in 24 hours. 10/16/23 10:06 Blood - Blood Aerobic Blood Culture - Preliminary No growth in 24 hours. 10/16/23 10:06 Blood - Blood Anaerobic Blood Culture - Preliminary No growth in 24 hours. 10/16/23 10:10 Nasopharnyx Influenza Type A Antigen Screen - Final 10/16/23 10:10 Nasopharnyx Influenza Type B Antigen Screen - Final Assessment/ Plan: Nephrology No dyspnea No chest pain +Appetite No acute events overnight Vitals, medications, blood work and imaging reviewed in the chart General: Oriented x3, Cooperative HEENT: Atraumatic Neck: Supple Respiratory: Clear to auscultation bilaterally Cardiovascular: No edema, Regular rate/rhythm Gastrointestinal: Soft and benign, Non-distended Musculoskeletal: No clubbing, No contractures Integumentary: No rashes, No cyanosis Neurological: Normal speech Laboratory Data (last 24 hrs) 10/16/23 10/16/23 10/16/23 10:05 10:05 10:05 WBC 5.00 Hgb 12.4 Hct 38.3 Plt Count 246 PT 13.6 H INR 1.24 APTT 36.3 Sodium 133 L Potassium 3.7 BUN 24 H Creatinine 2.21 H Glucose 109 H Total Bilirubin 0.6 AST 37 ALT 37 Alkaline Phosphatase 88 Imagings Data: EXAM DESCRIPTION: RADChest Single View10/16/2023 10:23 am CLINICAL HISTORY: COUGH COMPARISON: Chest Single View dated 07/09/2023; Chest Pa And Lat (2 Views) dated 12/27/2016; CHEST PA AND LAT 2 VIEW dated 12/11/2014; CHEST PA AND LAT 2 VIEW dated 08/08/2010 TECHNIQUE: Portable AP view of the chest. FINDINGS: The lungs are clear. No pneumothorax or effusion. The cardiomediastinal contours are unremarkable. IMPRESSION: No acute cardiopulmonary process. EXAM DESCRIPTION: CT - Abdomen Pelvis W Contrast - 10/16/2023 10:45 am CLINICAL HISTORY: ABD PAIN COMPARISON: No comparisons TECHNIQUE: Thin cut axial CT imaging of the abdomen and pelvis was performed following intravenous administration of 75 mL Isovue 300. Multiplanar reformats were generated and reviewed. All CT scans are performed using dose optimization technique as appropriate and may include automated exposure control or mA/KV adjustment according to patient size. FINDINGS: No suspicious findings in the lung bases apart from peripheral left lower lobe focally near scarring with adjacent 5 mm calcified granuloma. The liver, spleen, adrenal glands, and pancreas show no suspicious findings. Gallbladder and biliary tree are also without suspicious finding. Lobular contour of the kidneys bilaterally with multifocal areas of cortical thinning and hypoattenuation, favoring areas of scarring. Possibility of pyelonephritis is considered less likely. Motion artifact somewhat limits evaluation. No hydronephrosis or suspicious renal mass. No dilated bowel loops or bowel wall thickening. No free air, free fluid or inflammatory stranding. Small calcified uterine fibroid anteriorly. No hernia, mass or bulky lymphadenopathy. Urinary bladder is suboptimally distended limiting evaluation. No suspicious bony findings. IMPRESSION: Lobular contour of the kidneys with multifocal areas of cortical thinning and hypoattenuation favoring multifocal scarring possibly in the setting of prior infections. Pyelonephritis is among the differential considerations, however thought to be less likely. No other acute intra- abdominal process. Conclusions/Impression: Stage III TRUONG may be due to hypovolemia complicated by vasculitis recently treated with Rituximab Microscopic Hematuria Proteinuria Hx Granulomatosis with Polyangiitis -No NSAIDs -Pulse steroids -Continue IVF -Consider a renal biopsy -Case discussed with rheumatology Hyponatremia, improved HTN -Continue Propranolol Hypoalbuminemia -Encourage nutrition Microcytic Anemia Iron Saturation 32% -Monitor H&H Case reviewed with Dr. Bradshaw. Plan for discharge today. Case reviewed with Dr. Colon, [facility]. Dr. Colon will order prednisone and prophylaxis for the patient with a follow up in one week.
[2023-10-18 13:22] VITALS: BP 153/93; TEMP 97.2
--- NOTE | 2023-10-18 13:27 | P.DS ---
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 SHE IS ON THERAPY BY [employer]. SHE DEVELOPED PAIN ON RIGHT AURICLE WITH REDNESS. IN ER SHE WAS FOUND TO HAVE ACUTE RENAL FAILURE ALSO. Hospital Course: SOLA HAS JAMAL'S GRANULOMATOSIS OF SINUSES, LUNGS AND NOW HAS RENAL FAILURE. DR. ARCHIBALD GAVE STEROIDS PULSE DOSE. SHE CAME WITH R SIDE EAR CELLULTIS THAT IS BETTER ON VANCOMYCIN IV. SHE WILL GO HOME ON ZYVOX. SHE WILL FU WITH BOTH OF US. Vital Signs/Physical Exam: Temp Pulse Resp BP Pulse Ox 97.2 F 75 16 153/93 H 98 10/18/23 12:00 10/18/23 12:00 10/18/23 12:00 10/18/23 12:00 10/18/23 12:00 Laboratory Data at Discharge: WBC 5.10 thou/uL (4.3-10.9) 10/18/23 06:00 Hgb 9.4 g/dL (12.0-15.0) L D 10/18/23 06:00 Hct 28.9 % (36.0-45.0) L 10/18/23 06:00 Plt Count 163 thou/uL (152-406) 10/18/23 06:00 PT 13.6 SECONDS (9.5-12.5) H 10/16/23 10:05 INR 1.24 10/16/23 10:05 APTT 36.3 SECONDS (24.3-36.9) 10/16/23 10:05 Sodium 141 mEq/L (136-145) 10/18/23 06:00 Potassium 3.6 mEq/L (3.5-5.1) 10/18/23 06:00 BUN 19 mg/dL (7-18) H 10/18/23 06:00 Creatinine 1.69 mg/dL (0.55-1.02) H 10/18/23 06:00 Glucose 124 mg/dL (74-106) H 10/18/23 06:00 Uric Acid 5.3 mg/dL (2.6-6.0) 10/17/23 05:58 Phosphorus 3.3 mg/dL (2.5-4.9) 10/17/23 05:58 Magnesium 2.1 mg/dL (1.6-2.4) 10/17/23 05:58 Total Bilirubin 0.3 mg/dL (0.2-1.0) 10/17/23 05:58 AST 21 U/L (15-37) 10/17/23 05:58 ALT 34 U/L (13-56) 10/17/23 05:58 Alkaline Phosphatase 71 U/L (45-117) 10/17/23 05:58 Home Medications: Propranolol [Inderal*] 10 mg PO TID PRN 10/16/23 predniSONE [Prednisone] 20 mg PO DAILY 10/16/23 Linezolid [Zyvox] 600 mg PO BID #20 tab 10/18/23 New Medications: Linezolid [Zyvox] 600 mg PO BID #20 tab Followup: Michele Archibald DO [ACTIVE - CAN ADMIT] - 1-2 Weeks Jet Bradshaw MD [Primary Care Provider] - 1-2 Weeks
--- NOTE | 2023-10-18 14:31 | EKG ---
Test Date: 2023-10-16 Test Time: 11:39:44 [employer]: LISA MEASUREMENT RESULTS: Intervals: Rate: 82 CT: 130 QRSD: 82 QT: 404 QTc: 472 [place]: P: 51 CT: 130 QRS: 46 T: 28 INTERPRETIVE STATEMENTS: Normal sinus rhythm Nonspecific T wave abnormality Prolonged QT Abnormal ECG Compared to ECG 07/09/2023 10:48:03 T-wave abnormality now present Prolonged QT interval now present Sinus tachycardia no longer present Electronically Signed On 10-18-23 14:24:38 CDT by Nolberto Cardona
[2023-10-18] MEDS ORDERED: VANCOMYCIN 1.5 GM in NA CHLORIDE 0.9% 500 ML IVPB SCH ×2 (20:00→22:00)
[2023-10-22 15:57] LABS: Anti-Nuclear Antibody Screen Negative (Negative)
[2023-10-23] MEDS ORDERED: predniSONE 10 MG TAB PO SCH (09:00)
[2023-10-24] MEDS ORDERED: predniSONE 10 MG TAB PO SCH (09:00)
== END 2023-10-18 13:37 | disposition home or self-care (01) | DRG 154 ==
LOC: ER 09:13 → ERHOLD 11:08 → 4TH 18:34
PROVIDERS: ADMIT Internal Medicine; ATTEND Internal Medicine
DX: H60.11 Cellulitis of right external ear (principal); N00.9 Acute nephritic syndrome with unspecified morphologic changes; E87.1 Hypo-osmolality and hyponatremia; N17.9 Acute kidney failure, unspecified; M31.31 Wegener's granulomatosis with renal involvement; J32.9 Chronic sinusitis, unspecified; D50.9 Iron deficiency anemia, unspecified; E88.09 Other disorders of plasma-protein metabolism, not elsewhere classified; R91.8 Other nonspecific abnormal finding of lung field; R00.0 Tachycardia, unspecified; R31.29 Other microscopic hematuria; Z79.52 Long term (current) use of systemic steroids; Z79.899 Other long term (current) drug therapy
CPT/HCPCS: 36415; 71045; 74177; 80048; 80053; 81001; 81025; 82043; 82435; 82570; 83520; 83540; 83605; 83735; 84100; 84132; 84156; 84300; 84466; 84550; 85025; 85610; 85730; 86021; 86038; 86140; 86160; 87040; 87804; 87811; 93005; 96365; 96375; 99285; J0696; J1200; J2405; J2765; J2930; J7030; J7040; J7050; J7120; J7512; Q9967